=== PATIENT | female | born 1950 | race Caucasian/White ===

== ENCOUNTER 2018-03-04 05:45 | Observation (INO) | payer MEDICARE, OTHER ==
--- NOTE | 2018-02-18 16:22 | NUR ---
PATIENT HERE FOR PREAMISSION APPOINTMENT TODAY. PATIENT IS SCHEDULED FOR A RIGHT TOTAL KNEE ARTHROPLASTY ON 03/04/18. SHE HAS ALREADY ATTENDED A PHYSICAL THERAPY APPOINTMENT AT THE [facility]. SHE WOULD LIKE PHYSICAL THERAPY SET UP AT THE [facility] AFTER PROCEDURE. THE PATIENT REPORTS SHE WILL BE STAYING WITH HER DAUGHTER LUKE WHO HAS 3 STEPS INTO THE HOME WITH A HAND RAIL. THERE IS A TUB/SHOWER COMBO WITH A HANDHELD SHOWER HEAD. SHE IS GOING TO GO TO [facility] TO OBTAIN WALKER AND SHOWER CHAIR. SHE REPORTS HAVING HIP SURGERY A YEAR AGO AND GETTING SUPPLIES FROM THEM AT THAT TIME. THIS INFORMATION WILL BE SENT TO DR REIS OFFICE AND [place] PLANNING FOR FURTHER FOLLOW UP.
[~2018-03-04] VITALS: Ht 177.8 cm; Wt 99.8 kg
--- OUTSIDE RECORDS SUMMARY | ~2018-03-04 | XMS | Clinical Summary ---
Demographics + + + | Address | [address] | | | [place] [address] | + + + | Home Phone | | + + + | Preferred Language | Unknown | + + + | Marital Status | | + + + | Adventist Affiliation | 1025 | + + + | Race | Unknown | + + + | Ethnic Group | Unknown | + + + Author + + + | Author | [facility] | + + + | Organization | [facility] | + + + | Address | Unknown | + + + | Phone | Unavailable | + + + Support + + +---------+ + | Name | Relationship | Address | Phone | + + +---------+ + | Nancy Marrufo | ECON | Unknown | | + + +---------+ + | Detailed,Message | ECON | Unknown | | + + +---------+ + Care Team Providers + +------+ + | Care Audit Clerks Supervisor Name | Role | Phone | + +------+ + | Roger Ramírez DO | PP | | + +------+ + Allergies No Known Allergies Current Medications + + +-------+---------+------+------+-------+ | Prescription | Sig. | Disp. | Refills | Star | End | Statu | | | | | | t | Date | s | | | | | | Date | | | + + +-------+---------+------+------+-------+ | calcium carbonate | Take 1 tablet by | | | | | Activ | | (OS-KIRBY) 1250 MG | mouth daily. | | | | | e | | chewable tablet | | | | | | | + + +-------+---------+------+------+-------+ | Multiple Vitamin | Take 1 tablet by | | | | | Activ | | (MULTIVITAMIN) | mouth daily. | | | | | e | | tablet | | | | | | | + + +-------+---------+------+------+-------+ | FLAXSEED, LINSEED, | Take by mouth | | | | | Activ | | PO | daily. | | | | | e | + + +-------+---------+------+------+-------+ | b complex vitamins | Take 1 tablet by | | | | | Activ | | tablet | mouth daily. | | | | | e | + + +-------+---------+------+------+-------+ | UNABLE TO FIND | 1 tablet daily. | | | | | Activ | | | Tumeric | | | | | e | + + +-------+---------+------+------+-------+ | | Take 1 tablet by | | | | | Activ | | lisinopril-hydrochlo | mouth daily. | | | | | e | | rothiazide | | | | | | | | (PRINZIDE,ZESTORETIC | | | | | | | | ) 20-25 MG per | | | | | | | | tablet | | | | | | | + + +-------+---------+------+------+-------+ Active Problems + + + | Problem | Noted Date | + + + | Chest discomfort | 2016 | + + + + + | Last Assessment & Plan: 66 yr old female with h/o HTN, | | obesity, come for cardiology evaluation for chest pain. She | | reports having chest discomfort for many years more like skipped | | beats but lately she noticed having left sided and retrosternal | | chest pain which is different to what she had in years and is | | occuring more often- she was told this could be acid reflex and | | was given medicine for it which may have improved symptoms to | | come extent. She still have discomfort on and off non exertional, | | non radiating mild aching. Reports good exercise capacity. | | Remote smoking history stopped in 1972, drinks alcohol regularly | | 2-3 glasses of wine a night. No fhx of CAD. Will r/o CADReese do | | Stress MPi to evaluate for CAD03/21/2016- Echo- normal LV systolic | | functionEKG- 02/2016- NSR LAFB, anterior infarctDiscussed about | | CAD, risk factors, management options, diet, exercise, weight | | lossStrongly advised to stop alcoholAdvised to start ASA 81mg OTC | | QHSWill do lipid profileFollow up after tests. | + + + + + | right | 04/09/2013 | + + + | Breast mass | 03/27/2013 | + + + + + | Overview: Right | + + Social History + +-------+ +--------+ + | Tobacco Use | Types | Packs/Day | Years | Date | | | | | Used | | + +-------+ +--------+ + | Former Smoker | | | 3 | Quit: 11/26/1972 | + +-------+ +--------+ + + +---+---+---+ | Smokeless Tobacco: | | | | | Never Used | | | | + +---+---+---+ + + +---------+ + | Alcohol Use | Drinks/We | oz/Week | Comments | | | ek | | | + + +---------+ + | Yes | 2 | 2.4 | | | | Glasses | | | | | of wine | | | | | 2 Cans of | | | | | beer | | | + + +---------+ + + + + | Sex Assigned at | Date Recorded | | | | + + + | Not on file | | + + + Last Filed Vital Signs + + + + | Vital Sign | Reading | Time Taken | + + + + | Blood Pressure | 132/88 | 2016 12:37 PM PDT | + + + + | Pulse | 75 | 2016 12:37 PM PDT | + + + + | Temperature | 36.8 C (98.2 F) | 04/14/2013 12:10 PM PDT | + + + + | Respiratory Rate | 18 | 2016 12:37 PM PDT | + + + + | Oxygen Saturation | 98% | 2016 12:37 PM PDT | + + + + | Inhaled Oxygen | - | - | | Concentration | | | + + + + | Weight | 103 kg (227 lb) | 2016 12:37 PM PDT | + + + + | Height | 177.8 cm (5' 10") | 2016 12:37 PM PDT | + + + + | Body Mass Index | 32.57 | 2016 12:37 PM PDT | + + + + Plan of Treatment + + + + + | Health Maintenance | Due Date | Last Done | Comments | + + + + + | Vaccine: | | | | | Dtap/Tdap/Td (1 - | 9 | | | | Tdap) | | | | + + + + + | Colon Cancer | | | | | Screening | 0 | | | | (Colonoscopy) | | | | + + + + + | Vaccine: Zoster (#1) | | | | | | 0 | | | + + + + + | Breast Cancer | | 03/17/2013, 03/17/2013 | | | Screening | 5 | | | | (Mammogram) | | | | + + + + + | DEXA SCAN SCREENING | | | | | | 5 | | | + + + + + | Vaccine: | | | | | Pneumococcal 65+ | 5 | | | | High/Highest Risk (1 | | | | | of 2 - PCV13) | | | | + + + + + | Vaccine: Influenza | | | | | (Season Ended) | 8 | | | + + + + + Results Not on filefrom Last 3 Months Insurance + +--------+ +------+-------+ + | Payer | Benefi | Subscriber | Type | Phone | Address | | | t Plan | ID | | | | | | / | | | | | | | Group | | | | | + +--------+ +------+-------+ + | MEDICARE | MEDICA | xxxxxxxxxx | | | [address] | | | RE | | | | [place], [place] [address] | | | IP-OP | | | | | + +--------+ +------+-------+ + | MEDICAID | MEDICA | xxxxxxxx | | | [address] | | | ID | | | | [place] | | | [place] | | | | [address] | + +--------+ +------+-------+ + + +--------+ +--------+ + + | Guarantor Name | Accoun | Relation to | Date | Phone | Billing Address | | | t Type | Patient | of | | | | | | | | | | + +--------+ +--------+ + + | [address] | Person | Self | [birth year] | Home: | [address] | | | al/Fam | | [phone] | [phone] [place] | | | manuel | | | [phone] | [phone] | + +--------+ +--------+ + +
[~2018-03-04 05:45] MED LIST: CALCIUM600 MG PO; HYDROCODON-ACE1 EA11 PO; MAGNESIUM250 MG PO; MIRALAX17 GM PO; OXYCODONE HCL5 MG PO; TART CHERRY CA1 EACH PO; TUMERIC PO; XARELTO10 MG PO; ZESTORETIC 20-251 EA PO
--- NOTE | 2018-03-04 08:31 | NUR ---
03/04/18 0831 Neha Cardoso 0819 PT ARRIVED IN PACU WIDE AWAKE WITH NO C/O'S. CRYO CUFF PLACED ON R KNEE.
--- NOTE | 2018-03-04 08:51 | OR ---
[facility] [address] [place], [place] [address] Signed DATE OF OPERATION: 03/04/2018 SURGEON: Liana Dunn MD PREOPERATIVE DIAGNOSIS: Degenerative joint disease right knee. POSTOPERATIVE DIAGNOSIS: Degenerative joint disease right knee. PROCEDURE PERFORMED: Right total knee arthroplasty with computer navigation. MEDIA INTERN: PEPPER Castillo. Digna was present in critical positioning, retraction, and wound closure. ANESTHESIA: Spinal. BLOOD LOSS: Minimal. TOURNIQUET TIME: 53 minutes. IMPLANTS: Karl Triathlon size 5, 11 mm insert, 35 mm patella. HISTORY: Marivel is a 67-year-old female with progressive worsening of her arthritis and despite conservative treatment, she continued to have life-limiting pain. Risks, benefits, and alternatives were discussed and she elected to proceed. DESCRIPTION OF PROCEDURE: Once consent was obtained, she was taken to the operating room. After adequate anesthesia, placed on operating table. All downside pressure points are well padded. The right leg was placed on a hip bump and placed in well-padded proximal thigh tourniquet. The leg was then prepped and draped in standard sterile fashion. Standard anterior-posterior curved incision was taken through skin and subcutaneous tissue. Electronically Signed By: LIANA DUNN MD 03/04/18 0851 PATIENT NAME: MARIVEL STREET OPERATIVE REPORT DATE OF : 50 REPORT #: [id number] PHYSICIAN: LIANA DUNN MD PCP: SERAFIN CHEN DO REPORT IS CONFIDENTIAL AND NOT TO BE RELEASED WITHOUT AUTHORIZATION [facility] [address] [place], [place] [address] Signed Median parapatellar arthrotomy was performed. The infrapatellar fat pad was excised and the MCL was elevated to sleeve around the posterior medial corner. The anterior horns of menisci were transected. The ACL was transected. PCL was found to be intact and the knee was flexed. Navigation guide was pinned to the distal femur and the femur was registered with the computer. The cutting block was pinned in neutral alignment and the distal femoral cut was made. The distal femur was sized to a 5 and the 5 cutting block was pinned in line with the epicondylar axis. The anterior, posterior, and chamfer cuts were made. Any remaining osteophytes removed. Attention was then turned to the proximal tibia. The menisci were cleared to allow visualization. The navigation guide was pinned to the tibia and the tibia was registered with the computer. A cutting block was then pinned in neutral alignment and set to take 2 mm off the most involved medial side. The cut was made with care taken to protect the patellar tendon and MCL. The bone was excised and the posterior osteophytes were removed off the femur. The flexion and extension gaps were sized and found to be symmetric at 11 mm. The trials were then positioned. Knee was taken through range of motion and found to be stable. The patella was cut, sized, and drilled for 35 patella. The proximal tibia was finished using the keel punch and the drill holes on the femur were made. The trials were removed. The bone surfaces were pulse lavaged and packed with dry Ray-Maximiliano. Cement was mixed and reached proper consistency, displaced all implants on bone surfaces. The tibia was impacted into position first followed by the femur and all excess cement was removed. The polyethylene was snapped into position and the knee was extended and nicely loaded. The patella was clamped and again any remaining cement was removed. The cement was allowed to harden and the knee was again flexed and the remaining cement was removed using osteotomes. The periarticular soft tissues were injected with 100 mL ropivacaine and Toradol mixture. The knee was pulse lavaged at intervals throughout the procedure. A total of 3 L antibiotic irrigation was used. The arthrotomy was then closed using #2 Stratafix subcutaneous tissue with 0 Stratafix, and skin with maciej. Wound was dressed with Mepilex Ag dressing, ABD, and Jamie wrap. She tolerated the procedure well. All sponge, needle, and instrument counts were correct. Liana Dunn MD BA/MODL /[id number] Electronically Signed By: LIANA DUNN MD 03/04/18 0851 PATIENT NAME: MARIVEL STREET OPERATIVE REPORT DATE OF : 50 REPORT #: [id number] PHYSICIAN: LIANA DUNN MD PCP: SERAFIN CHEN DO REPORT IS CONFIDENTIAL AND NOT TO BE RELEASED WITHOUT AUTHORIZATION [address] [address] Signed Copies: ~ Electronically Signed By: LIANA DUNN MD 03/04/18 0851 PATIENT NAME: MARIVEL STREET OPERATIVE REPORT DATE OF : 50 REPORT #: [id number] PHYSICIAN: LIANA DUNN MD PCP: SERAFIN CHEN DO REPORT IS CONFIDENTIAL AND NOT TO BE RELEASED WITHOUT AUTHORIZATION
--- NOTE | 2018-03-04 09:00 | NUR ---
PATIENT GOT HERE AT 0855. DRESSING TO RIGHT KNEE CDI. CRYO CUFF IN PLACE. PATIENT A+0. PATIENT IS HAVING NO PAIN. HR IN THE 48-60'S. INFORMED.
--- NOTE | 2018-03-04 10:17 | NUR ---
PATIENT RESTING IN BED, EYES CLOSED. FAMILY AND RN IN ROOM. CALL LIGHT IN REACH. NO OTHER NEEDS AT THIS TIME.
--- NOTE | 2018-03-04 12:00 | NUR ---
PATIENT DOING WELL, ADVANCED TO CARDIAC DIET, DAUGHTER AT BEDSIDE, AND PATIENT IS STILL PAIN FREE. MOVING LOWER EXTREMITIES.
--- NOTE | 2018-03-04 13:10 | NUR ---
BLADDER SCAN OF 686MLS AND PATIENT IS INCONTINENT IN THE BED. GETTING READY TO GET UP TO THE BEDSIDE COMMODE WITH PT.
--- NOTE | 2018-03-04 13:15 | NUR ---
INCONTINENT IN THE BED AND ON FLOOR GETTING HER UP TO THE BEDSIDE COMMODE WITH PT. VOIDED 750 IN BEDSIDE COMMODE. 1 PERSON ASSIST TO BEDSIDE COMMODE.
--- NOTE | 2018-03-04 13:56 | NUR ---
PATIENT IS SITTING UP IN BED. RN IN ROOM ASSISTING PATIENT. PATIENTS FAMILY IN ROOM. CALL LIGHT WITHIN REACH. ICE IN CRYO. NO OTHER NEEDS AT THIS TIME.
--- NOTE | 2018-03-04 14:07 | NUR ---
STAFF HAVE BEEN VERY BUSY WITH PT SINCE SHE HAS ARRIVED ON M\S. VISITED WITH PT'S DAUGHTER LUKE, WHO SEEMS ANXIOUS TO CARE FOR HER MOTHER. SHE MENTIONED THAT SHE IS PLANNING ON PT COMING TO HER HOME FOLLOWING DC. SEEMS PLEASANT AND CONFIDENT IN CARE PT IS RECEIVING. WILL CONTINUE TO FOLLOW NEEDED
--- NOTE | 2018-03-04 15:01 | NUR ---
PT ALERT, ORIENTED AND SUPPORTED BY HER DAUGHTER ESTEFANIA. PT SEEMED INTRIQUED BY MY POSITION, AND ASKED QUESTIONS REGARDING WHAT MY JOB ENTALES. PT IS OF THE LATTER DAY [place], AND SEEMED SURPRISED I WOULD CARE FOR HER. EXTENDED A BLESSING, WILL FOLLOW NEEDED
--- NOTE | 2018-03-04 16:00 | NUR ---
PATIENT ATE A GOOD LUNCH, HAS HAD NO PAIN, NO NAUSEA, NO EPISODES OF DESATING THIS AFTERNOON AND NOT ON O2.
--- NOTE | 2018-03-04 17:24 | NUR ---
FRONT END JAVA DEVELOPER ASSISTED PATIENT FROM BEDSIDE COMMODE TO BED. 1 PERSON SBA WITH FWW. PATIENT IS NOW SITTING UP IN BED EATING DINNER. PATIENTS FAMILY IN ROOM. FRESH ICE WATER. CALL LIGHT WITHIN REACH. NO OTHER NEEDS AT THIS TIME.
--- NOTE | 2018-03-04 18:31 | NUR ---
PATIENT RESTING IN BED VISITING WITH FRIEND. CALL LIGHT WITHIN REACH. ICE IN CRYO. NO OTHER NEEDS AT THIS TIME.
--- NOTE | 2018-03-04 19:25 | NUR ---
IN ROOM FOR REPORT, PT IS AWAKE IN BED AND DENIES PAIN AT THIS TIME. PT DENIES NEEDS AT THIS TIME, CALL LIGHT IS WITHIN REACH.
--- NOTE | 2018-03-04 21:05 | NUR ---
PT IS AWAKE IN BED, HELPED HER TO THE RESTROOM AND BACK TO BED. AES, SCDS, CRYOCUFF, HEEL PROTECTORS, AND CONT PULSE OX ARE IN PLACE. PT DENIES PAIN AT THIS TIME AND STATES SHE HAS FEELING IN HER LEGS WITH LITTLE NUMBNESS. SHE IS A 1PA WITH WALKER. HER DRESSING IS CDI. SHE IS TOLERATING A REGULAR DIET AND IV WAS SL EARLIER IN DAY. PT IS VOIDING QS. SHE DENIES FURTHER NEEDS AT THIS TIME. CALL LIGHT IS WITHIN REACH.
--- NOTE | 2018-03-04 22:35 | NUR ---
WOKE PT TO GIVE ABX, SHE DENIES PAIN OR FURTHER NEEDS AT THIS TIME. CALL LIGHT IS WITHIN REACH.
--- NOTE | 2018-03-05 02:12 | NUR ---
HELPED PT TO RESTROOM AND BACK TO BED, SHE HAS FRESH ICEWATER AT BEDSIDE AND ICE IN HER CRYOCUFF. PT DENIES PAIN AND FURTHER NEEDS AT THIS TIME. CALL LIGHT IS WITHIN REACH.
--- NOTE | 2018-03-05 06:34 | NUR ---
HELPED PT TO RESTROOM, HER DAUGHTER IS HERE VISITING. SHE DENIES NEEDS AT THIS TIME. FRESH WATER AT BEDSIDE AND ICE IN CRYO.
--- NOTE | 2018-03-05 07:30 | NUR ---
PATIENT A+O AND HAD A GOOD NIGHT. PATIENT IS STILL PAIN FREE. HERE ASSESSING PATIENT.
--- NOTE | 2018-03-05 07:45 | NUR ---
PATIENT SITTING STRAIGHT UP IN BED EATING BREAKFAST. TALKED TO PATIENT ABOUT GETTING UP TO CHAIR AND BATHING THIS AM. PATIENT RATES PAIN 0 OUT OF 10. CALL BUTTON IN REACH. NO OTHER NEEDS AT THIS TIME.
--- NOTE | 2018-03-05 09:30 | NUR ---
PATIENT UP IN THE BEDSIDE RECLINER. FEET ELEVATED. TEDS, SCD'S, AND CRYO CUFF STILL IN PLACE. PATIENT SAYS HER KNEE IS STARTING TO ACHE, BUT ONLY WANTS TO TAKE THE SCHDULED TORADOL IV, AND NO OTHER PAIN MEDICATION AT THIS TIME. PATIENT HAS VISITORS.
--- NOTE | 2018-03-05 10:03 | NUR ---
PATIENT SITTING UP IN CHAIR WITH CRYO ON. FAMILY IN ROOM TO VISIT. PATIENT HAS SOME DRAINAGE ON HER DRESSING. RN NOTIFIED. FRESH ICE WATER GIVEN. ICE IN CRYO. PATIENT WASHED HANDS AND FACE. CALL BUTTON IN REACH. LINENS CHANGED. NO OTHER NEEDS AT THIS TIME.
--- NOTE | 2018-03-05 11:40 | NUR ---
PATIENT SAYS HER KNEE IS STARTING TO FEEL WARM AND ACHES AT 1/10. 5MG PO OXYCODONE GIVEN. WILL REASSESS IN 30 MINUTES.
--- NOTE | 2018-03-05 12:12 | NUR ---
PATIENT SITTING UP IN BED. PATIENT VISITING WITH FRIENDS AND FAMILY MEMBERS. NO OTHER NEEDS AT THIS TIME.
--- NOTE | 2018-03-05 12:17 | NUR ---
PATIENT DOWN TO 0/10 FROM /10 AND DOES NOT WANT ANYMORE PAIN MEDS AT THIS TIME.
--- NOTE | 2018-03-05 12:30 | NUR ---
PATIENT SITTING UP IN BED. FAMILY AT BEDSIDE VISITING. PATIENT HAS A LOT OF VISITORS. NO C/O OF ANYPAIN. PATIENT A+O.
--- NOTE | 2018-03-05 13:09 | NUR ---
PT SITTING IN CHAIR, READING. SHE IS ALERT AND ORIENTED. P.T. CAME IN DURING VISIT TO CHECK ON PT, AND SAID SHE IS DOING WELL. PT MENTIONED SHE IS NAPPING ON AND OFF, NOT MUCH SLEEP LAST NIGHT. EXTENDED A BLESSING, WILL FOLLOW NEEDED
--- NOTE | 2018-03-05 13:11 | NUR ---
PATIENT SITTING UP IN BED. FAMILY IN ROOM TO VISIT. NO NEEDS AT THIS TIME. CALL BUTTON IN REACH.
--- NOTE | 2018-03-05 13:38 | NUR ---
PATIENT IN BED WITH FAMILY IN ROOM. FRESH ICE WATER GIVEN. PATIENT RATES PAIN A 2 OUT OF 10. PATIENT STATES THAT SHE WASHED UP IN BATHROOM EARLIER TODAY AND BRUSED HER TEETH. NO OTHER NEEDS AT THIS TIME. CALL BUTTON IN REACH.
--- NOTE | 2018-03-05 14:55 | NUR ---
PATIENT HAD A LARGE K+ PIGGYBACK THIS MORNING THAT RAN OVER 4 HORS. SITE IS NOW INFLAMED AND TENDER. V.O. FROM DR. MAGDALENO TO MAKSIM IV AND NOT TO START A NEW ONE AT THIS TIME.
--- NOTE | 2018-03-05 15:39 | NUR ---
PATIENT HR HAS DROPPED DOWN TO 45 AND IS NOT SYMPOTOMATIC. INFORMED. NO NEW ORDERS GIVEN.
--- NOTE | 2018-03-05 16:00 | NUR ---
PATIENT VISITING WITH A FRIEND. PAIN AT 3/10 AT THIS TIME.
[2018-03-05] MEDS ORDERED: ALEVE220 M1 PO (16:17)
--- NOTE | 2018-03-05 16:25 | NUR ---
MED REC COMPLETE WITH [facility] REFILL HISTORY AND PATIENT INTERVIEW.
--- NOTE | 2018-03-05 17:00 | NUR ---
PATIENT HAS HAD A GOOD DAY. IV SL AND FLUSHES WELL. LUNGS CLEAR. BOWEL TONES ACTIVE. PATIENT EATING WELL. SMALL AMOUNT OF DRAINAGE ON BOTTOM OF ARSLAN WRAP AFTER PT. WALKED IN SPICER AND CLIMBED STAIRS TODAY WITH PT. PATIENT ALSO UP TO THE BATHROOM MULTIPLE TIMES WITH 1PSBA AND WALKER. PAIN REACHED A MAXIMUM OF 5/10 TODAY. 5MG OXYCODONE GIVEN AFTER MORNING PT SESSION AND 10MG GIVEN IN THE AFTERNOON. PAIN CURRENTLY 0.5/10 PER PATIENT. CRYO CUFF, SCDS, AND TEDS IN PLACE.
--- NOTE | 2018-03-05 17:54 | NUR ---
PATIENT SITTING STRAIGHT UP IN BED EATING DINNER. FRESH ICE WATER GIVEN. ICE IN CRYO. PATIENT RATES HER PAIN A 1 OUT OF 10. NO OTHER NEEDS AT THIS TIME.
--- NOTE | 2018-03-05 19:08 | NUR ---
IN ROOM FOR REPORT, PT IS AWAKE IN BED. HELPED HER TO THE RESTROOM, SHE WILL CALL WHEN SHE IS DONE.
--- NOTE | 2018-03-05 23:05 | NUR ---
HELPED PT TO RESTROOM AND BACK TO BED, SHE STATES SHE HAS NO PAIN AT THIS TIME. CRYOCUFF, SCDS, AES, AND HEEL PROTECTORS ARE IN PLACE.THERE IS A SMALL AMOUNT OF DRIED BLOOD ON ACEWRAP, OTHERWISE DRESSING IS CDI. PT DENIES FURTHER NEEDS AT THIS TIME. CALL LIGTH IS WITHIN REACH.
--- NOTE | 2018-03-06 01:12 | NUR ---
PT IS RESTING WITH EYES CLOSED, RESPIRATION ARE EVEN AND NONLABORED. CALL LIGHT IS WITHIN REACH.
--- NOTE | 2018-03-06 02:33 | NUR ---
PT STATES HER PAIN IS A 4/10 AND 2 OXYDOCONE WORKED WELL FOR HER EARLIER TODAY. ADMINISTERED 2 OXYCODONE AND PT DENIES FURTHER NEEDS AT THIS TIME. CALL LIGHT IS WITHIN REACH.
--- NOTE | 2018-03-06 06:27 | NUR ---
PT IS AWAKE IN BED, REPORTS PAIN AT 4/10. TYLENOL AND 2 OXYCODONE WERE GIVEN. PT DENIES FURTHER NEEDS AT THIS TIME. FRESH WATER AT BEDSIDE.
--- NOTE | 2018-03-06 08:00 | NUR ---
PATIENT A+O, AWAKE AND VISITING WITH FAMILY. LOOKING FORWARD TO GOING HOME, BUT STILL HAS NOT HAD A BOWEL MOVEMENT. IV FLUSHES WELL. NO NEW DRAINAGE ON DRESSING, JUST A SMALL DRIED AMOUNT FROM YESTERDAY. PATIENT'S PAIN IS 2/10 IN THE RT KNEE.LUNGS CLEAR AND BOWEL TONES ACTIVE. 1PSBA WITH WALKER TO THE BATHROOM WHEN NEEDED.
--- NOTE | 2018-03-06 08:04 | NUR ---
PATIENT SITTING UP IN BED EATING BREAKFAST. PATIENTS SON AND DAUGHTER IN ROOM. CALL LIGHT WITHIN REACH. NO OTHER NEEDS AT THIS TIME.
[2018-03-06] MEDS ORDERED: XARELTO10 MG PO (09:46)
[2018-03-06] MEDS ORDERED: OXYCODONE HCL5 MG PO (09:46)
[2018-03-06] MEDS ORDERED: MAPAP500 M1 PO (09:46)
[2018-03-06] MEDS ORDERED: MIRALAX17 GM PO (09:47)
[2018-03-06] MEDS ORDERED: NEURONTIN300 MG PO (09:47)
--- NOTE | 2018-03-06 11:00 | NUR ---
PATIENT STARTED A BATH AT 0930 AND AT 1030 RT KNEE DRESSING REPLACED. MEPILEX,ABD,AND ARSLAN WRAP SECURED WITH SILK TAPE. LACEY HOSE KNEE HIGH THEN PLACED. PATIENT'S PAIN AT 3/10 AT THIS TIME IT HAS BEEN OVER 4 HOURS SINCE HER LAST PAIN MEDICATION. 5MG OXYCODONE X2 PO GIVEN. AWITING PATIENT'S DAUGHTER TO ARRIVE TO GO OVER DISCHARGE INSTRUCTIONS AND TO HAVE PHARMACY GIVE DC INSTRUCTIONS FOR MEDS.
--- NOTE | 2018-03-06 13:05 | NUR ---
PT WAITING FOR DC-CONNECTED WIT DAUGHTER LUKE. SHE IS EXCITED TO HAVE PT COME HOME WITH HER FOR THE FIRST FEW DAYS.
--- NOTE | 2018-03-07 17:49 | NUR ---
CHART NOTES INCLUDING FACESHEET, ORDER, H AND P, OP NOTES, PROG NOTES, OT AND PT EVAL AND NOTES FAXED TO [facility].
--- NOTE | 2018-03-07 17:55 | NUR ---
RECIEVED FAX CONFIRMATION FROM [facility]
== END 2018-03-06 12:15 | disposition home or self-care (01) ==
LOC: DS 05:45 → MS 09:00 → DS 09:00 → MS 03-06 12:15
PROVIDERS: ADMIT Specialist
PROC: 8E0YXBZ Computer Assisted Procedure of Lower Extremity (ICD-10-PCS; 2018-03-04)
PROC: 0SRC0J9 Replacement of Right Knee Joint with Synthetic Substitute, Cemented, Open Approach (ICD-10-PCS; principal; 2018-03-04 06:45)
DX: M17.11 Unilateral primary osteoarthritis, right knee (principal); I10 Essential (primary) hypertension; E66.9 Obesity, unspecified; Z79.899 Other long term (current) drug therapy; Z79.1 Long term (current) use of non-steroidal anti-inflammatories (NSAID); Z68.31 Body mass index [BMI] 31.0-31.9, adult
CPT/HCPCS: 01402; 36415; 64447; 76942; 80048; 85025; 94762; 96372; 96374; 96375; 96376; 97110; 97116; 97161; 97165; C1713; C1776; G0378; G8978; G8979; J0690; J1100; J1885; J2250; J2274; J2300; J2704; J2795; J3010; J7120

== ENCOUNTER 2019-11-11 15:06 | Emergency (ER) | payer MEDICARE, OTHER ==
[~2019-11-11] VITALS: Ht 177.8 cm; Wt 99.8 kg
--- OUTSIDE RECORDS SUMMARY | ~2019-11-11 | XMS | Encounter Summary ---
Demographics + + + | Address | [address] | | | [place] [address] | + + + | Home Phone | | + + + | Preferred Language | Unknown | + + + | Marital Status | | + + + | Religion Affiliation | 1025 | + + + | Race | Unknown | + + + | Ethnic Group | Unknown | + + + Author + + + | Author | [facility] | | | and [place] | + + + | Organization | [facility] | | | and [place] | + + + | Address | Unknown | + + + | Phone | Unavailable | + + + Support + + +---------+ + | Name | Relationship | Address | Phone | + + +---------+ + | Nancy Marrufo | ECON | Unknown | | + + +---------+ + Care Team Providers + +------+ + | Care Shelf Drier Operator Name | Role | Phone | + +------+ + PCP | Unavailable | + +------+ + Reason for Visit + + + | Reason | Comments | + + + | Medication Refill | | + + + Encounter Details +--------+--------+ + + + | Date | Type | Department | Care Team | Description | +--------+--------+ + + + | 06/02/ | Refill | [facility] | Kiera Araya, CC | Medication Refill | | 2018 | | [facility] | [facility] | | | | | [facility] [address] [place], | | | | | | [place] [address] | | | | | | [phone] | | | +--------+--------+ + + + Social History + +-------+ +--------+------+ | Tobacco Use | Types | Packs/Day | Years | Date | | | | | Used | | + +-------+ +--------+------+ | Former Smoker | | | | | + +-------+ +--------+------+ + + + | Sex Assigned at | Date Recorded | | | | + + + | Not on file | | + + + + + + + | Job Start Date | Occupation | Industry | + + + + | Not on file | Not on file | Not on file | + + + + + + + + | Travel History | Travel Start | Travel End | + + + + + + | No recent travel history available. | + + documented as of this encounter Plan of Treatment Not on filedocumented as of this encounter Visit Diagnoses Not on filedocumented in this encounter"
--- OUTSIDE RECORDS SUMMARY | ~2019-11-11 | XMS | Encounter Summary ---
Demographics + + + | Address | [address] | | | [place] [address] | + + + | Home Phone | | + + + | Preferred Language | Unknown | + + + | Marital Status | | + + + | Yarsanism Affiliation | 1025 | + + + | Race | Unknown | + + + | Ethnic Group | Unknown | + + + Author + + + | Author | [facility] | | | and [place] | + + + | Organization | [facility] | | | and [...] Team Providers + +------+ + | Care Money Counter Name | Role | Phone | + +------+ + PCP | Unavailable | + +------+ + Encounter Details +--------+ + + + + | Date | Type | Department | Care Team | Description | +--------+ + + + + | 12/10/ | Hospital | [facility] | Conversion | Breast nodule | | 2014 | Encounter | CONVERSION [address] | Transaction, | | | | | [address] | Provider Unknown | | | | | [place] | | | | | | [address] | (Fax) | | | | | [phone] | | | +--------+ + + + + Social History + +-------+ +--------+------+ | Tobacco Use | Types | Packs/Day | Years | Date | | | | | Used | | + +-------+ +--------+------+ | Never Assessed | | | | | + +-------+ [...] Not on filedocumented as of this encounter Procedures + +--------+ + + + | Procedure Name | Priori | Date/Time | Associated Diagnosis | Comments | | | ty | | | | + +--------+ + + + | CORINNE DIGITAL | Routin | 03/17/2013 | | Results for this | | DIAGNOSTIC BILATERAL | e | 4:04 AM | | procedure are in the | | | | PDT | | results section. | + +--------+ + + + documented in this encounter Results CORINNE Digital Diagnostic Bilateral (03/17/2013 4:04 AM PDT) + + | Specimen | + + | | + + + + + | Narrative | Performed At | + + + | This is a non-reportable procedure without a radiologist report and | | | is used for image storage only | | + + + + + | Procedure Note | + + | Arturo Whaley Michael - 07/11/2019 3:42 AM PDT This is a non-reportable procedure | | without a radiologist report and isused for image storage only | + + documented in this encounter Visit Diagnoses + + | Diagnosis | + + | Breast nodule Other (abnormal) findings on radiological examination of breast | + + documented in this encounter"
--- OUTSIDE RECORDS SUMMARY | ~2019-11-11 | XMS | Encounter Summary ---
Demographics + + + | Address | [address] | | | [place] [address] | + + + | Home Phone | | + + + | Preferred Language | Unknown | + + + | Marital Status | | + + + | Bahai Affiliation | 1025 | + + + | Race | Unknown | + + + | Ethnic Group | Unknown | + + + Author + + + | Author | [facility] | | | and [place] | + + + | Organization | [facility] | | [...] Team Providers + +------+ + | Care Firmware Developer Name | Role | Phone | + +------+ + | Lucius Ramírez DO | PCP | | + +------+ + Encounter Details +--------+ + + + + | Date | Type | Department | Care Team | Description | +--------+ + + + + | 03/21/ | Orders Only | [facility] | Lucius Ramírez | | | 2015 | | [address] | E, DO [address] | | | | | [place] | [place] | | | | | [place] | [address] | | | | | [address] | [phone] | | | | | [phone] | | | +--------+ + + + [...] | + +--------+ + + + | ECHO INTERPRETATION | Routin | 03/21/2016 | | Results for this | | OF OUTSIDE FILMS | e | 11:45 AM | | procedure are in the | | | | PDT | | results section. | + +--------+ + + + documented in this encounter Results ECHO Interpretation of Outside Films (03/21/2016 11:45 AM PDT) + + | Specimen | + + | | + + + + + | Impressions | Performed At | + + + | 1. Overall left ventricular systolic function is normal with, an EF | | | between 65 - 70 %. | | + + + + + + | Narrative | Performed At | + + + | Patient Name: Letitia Jaffe Date of : 1950 | | | Performing Physician: MARISOL PEPPER MD | | | | | | INDICATIONS Murmur CONCLUSIONS 1. | | | Overall left ventricular systolic function is normal with, an EF | | | between 65 - 70 %. FINDINGS -------- Left Ventricle: Overall | | | left ventricular systolic function is normal with, an EF between 65 - | | | 70 %. Left Ventricle: The left ventricle cavity size is normal. Left | | | Ventricle: Left ventricular wall thickness is normal. Left | | | Ventricle: Sigmoid shaped septum with focal hypertrophy of the basal | | | septum. The remaining wall thickness is normal. Right Ventricle: The | | | right ventricle is normal in size. Left Atrium: The left atrial size | | | is normal. Right Atrium: The right atrial size is normal. Aortic | | | Valve: The aortic valve was not well visualized. Aortic Valve: There | | | is no evidence of aortic regurgitation. Aortic Valve: There is no | | | evidence of aortic stenosis. Mitral Valve: The mitral valve is | | | normal. Mitral Valve: No mitral regurgitation. Tricuspid Valve: The | | | tricuspid valve appears structurally normal. Tricuspid Valve: No | | | regurgitation noted Tricuspid Valve: There is no evidence of | | | pulmonary hypertension. Pulmonic Valve: The pulmonic valve is normal. | | | Pulmonic Valve: Trace pulmonic regurgitation. Pericardium: There | | | is no pericardial effusion. IVC/Hepatic Veins: The IVC is normal size | | | (1.5-2.5cm) and collapses >50% with sniff, consistent with central | | | venous pressures of 5-10mmHg. Aorta: The aortic root, ascending aorta | | | and aortic arch are normal. MEASUREMENTS | | | Trial Paralegal: NELY Authenticated by: MARISOL PEPPER MD Report | | | Date/Time: 03-22-2016 13:24:24 | | + + + + + | Procedure Note | + + | Judd, Rad Conversion - 07/18/2019 10:37 AM PDT Patient Name: Chepe Jaffe of | | : 1950 Performing Physician: MARISOL PEPPER | | INDICATIONS M | | urmur CONCLUSIONS 1. Overall left ventricular systolic function is normal | | with, an EF between 65 - 70 %. FINDINGS--------Left Ventricle: Overall left ventricular | | systolic function is normal with, an EF between 65 - 70 %.Left Ventricle: The left | | ventricle cavity size is normal.Left Ventricle: Left ventricular wall thickness is | | normal.Left Ventricle: Sigmoid shaped septum with focal hypertrophy of the basal septum. | | The remaining wall thickness is normal.Right Ventricle: The right ventricle is normal | | in size.Left Atrium: The left atrial size is normal.Right Atrium: The right atrial size | | is normal.Aortic Valve: The aortic valve was not well visualized.Aortic Valve: There is | | no evidence of aortic regurgitation.Aortic Valve: There is no evidence of aortic | | stenosis.Mitral Valve: The mitral valve is normal.Mitral Valve: No mitral | | regurgitation.Tricuspid Valve: The tricuspid valve appears structurally normal.Tricuspid | | Valve: No regurgitation notedTricuspid Valve: There is no evidence of pulmonary | | hypertension.Pulmonic Valve: The pulmonic valve is normal.Pulmonic Valve: Trace | | pulmonic regurgitation.Pericardium: There is no pericardial effusion.IVC/Hepatic Veins: | | The IVC is normal size (1.5-2.5cm) and collapses >50% with sniff, consistent with | | central venous pressures of 5-10mmHg.Aorta: The aortic root, ascending aorta and aortic | | arch are normal. MEASUREMENTS Trial Paralegal: JOELLENuthenticated by: MARISOL | | SHANTELLE Donaldson Date/Time: 03-22-2016 13:24:24 IMPRESSION: 1. Overall left | | ventricular systolic function is normal with, an EF between 65 - 70 %. | |Right Ventricle: The right ventricle is normal in size. | |Left Atrium: The left atrial size is normal. | |Right Atrium: The right atrial size is normal. | |Aortic Valve: The aortic valve was not well visualized. | |Aortic Valve: There is no evidence of aortic regurgitation. | |Aortic Valve: There is no evidence of aortic stenosis. | |Mitral Valve: The mitral valve is normal. | |Mitral Valve: No mitral regurgitation. | |Tricuspid Valve: The tricuspid valve appears structurally normal. | |Tricuspid Valve: No regurgitation noted | |Tricuspid Valve: There is no evidence of pulmonary hypertension. | |Pulmonic Valve: The pulmonic valve is normal. | |Pulmonic Valve: Trace pulmonic regurgitation. | |Pericardium: There is no pericardial effusion. | |IVC/Hepatic Veins: The IVC is normal size (1.5-2.5cm) and collapses >50% with sniff, consis tent with central venous pressures of 5-10mmHg. | |Aorta: The aortic root, ascending aorta and aortic arch are normal. | | | |MEASUREMENTS | | | | | |Trial Paralegal: | |Authenticated by: MARISOL PEPPER MD | |Report Date/Time: 03-22-2016 13:24:24 | | | |IMPRESSION: | |1. Overall left ventricular systolic function is normal with, an EF between 65 - 70 %. | + + documented in this encounter Visit Diagnoses Not on filedocumented in this encounter"
--- OUTSIDE RECORDS SUMMARY | ~2019-11-11 | XMS | Encounter Summary ---
Demographics + + + | Address | [address] | | | [place] [address] | + + + | Home Phone | | + + + | Preferred Language | Unknown | + + + | Marital Status | | + + + | Lutheran Affiliation | 1025 | + + + | Race | Unknown | + + + | Ethnic Group | Unknown | + + + Author + + + | Author | [facility] | | | and [place] | + + + | Organization | [facility] | | | [...] Team Providers + +------+ + | Care Hospital Tray Service Worker Name | Role | Phone | + +------+ + | Lucius Ramírez DO | PCP | | + +------+ + Encounter Details +--------+ + + + + | Date | Type | Department | Care Team | Description | +--------+ + + + + | 10/06/ | Abstract | [facility] | Lucius Ramírez | | | 2019 | | [facility] | E, DO [address] | | | | | [facility] [address] | [place] | | | | [address] [place], | [address] | | | | | [place] [address] | [phone] | | | | | [phone] | | | +--------+ + + + + Social History + +-------+ +--------+------+ | Tobacco Use | Types | Packs/Day | Years | Date | | | | | Used | | + +-------+ +--------+------+ | Former Smoker | | | | | + +-------+ +--------+------+ + +---+---+---+ | Smokeless Tobacco: | | | | | Never Used | | | | + +---+---+---+ + + + + + | Alcohol Use | Drinks/Week | oz/Week | Comments | + + + + + | Yes | 1-2 Standard | 1.0 - 2.0 | | | | drinks or equivalent | | | + + + + + + + + + | Alcohol Habits | Answer | Date Recorded | + + + + | How often do you have a drink containing | 2-4 times a month | 10/03/2019 | | alcohol? | | | + + + + | How many drinks containing alcohol do you | 1 or 2 | 10/03/2019 | | have on a typical day when you are | | | | drinking? | | | + + + + | How often do you have six or more drinks on | Not asked | | | one occasion? | | | + + + + + + + | Sex Assigned [...] + +--------+ + + + | CORINNE EXTERNAL IMAGE | Routin | 10/24/2018 | | Results for this | | | e | | | procedure are in the | | | | | | results section. | + +--------+ + + + documented in this encounter Results CORINNE External Image (10/24/2018) + + + + + + | Component | Value | Ref Range | Performed | Pathologist | | | | | At | Signature | + + + + + + | EXT | 2-Benign | | | | | MAMMOGRAPHY | finding(s)Comment: [facility] | | | | | | [facility] | | | | + + + + + + documented in this encounter Visit Diagnoses Not on filedocumented in this encounter"
--- OUTSIDE RECORDS SUMMARY | ~2019-11-11 | XMS | Encounter Summary ---
Demographics + + + | Address | [address] | | | [place] [address] | + + + | Home Phone | | + + + | Preferred Language | Unknown | + + + | Marital Status | | + + + | Synagogue Affiliation | 1025 | + + + | Race | Unknown | + + + | Ethnic Group | Unknown | + + + Author + + + | Author | [facility] | | | and [place] | + + + | Organization | [facility] | | [...] Team Providers + +------+ + | Care Nanotechnology Engineering Technologist Name | Role | Phone | + +------+ + PCP | Unavailable | + +------+ + Encounter Details +--------+ + + + + | Date | Type | Department | Care Team | Description | +--------+ + + + + | 12/10/ | Hospital | C GENERIC IP | Conversion | Pain | | 2015 | Encounter | CONVERSION [address] | Transaction, | | | | | [address] | Provider Unknown | | | | | [place], [place] | | | | | | [address] | (Fax) | | | | | [phone] | | | +--------+ + + + [...] | + +--------+ + + + | US BREAST LIMITED | Routin | 03/17/2013 | | Results for this | | RIGHT | e | 4:03 AM | | procedure are in the | | | | PDT | | results section. | + +--------+ + + + documented in this encounter Results US Breast Limited Right (03/17/2013 4:03 AM PDT) + + | Specimen | [...] + | Diagnosis | + + | Pain Generalized pain | + + documented in this encounter"
--- OUTSIDE RECORDS SUMMARY | ~2019-11-11 | XMS | Clinical Summary ---
Demographics + + + | Address | [address] | | | [place] [address] | + + + | Home Phone | | + + + | Preferred Language | Unknown | + + + | Marital Status | | + + + | Evangelical Affiliation | 1025 | + + + | Race | Unknown | + + + | Ethnic Group | Unknown | + + + Author + + + | Author | [facility] (Historical as of | | | 07-12-19) | + + + | Organization | [facility] (Historical as of | | | 07-12-19) | + + + | Address | Unknown | + + + | Phone | Unavailable | + + + Support + + +---------+ + | Name | Relationship | Address | Phone | + + +---------+ + | Nancy Marrufo | ECON | Unknown | | + + +---------+ + | Elder,Sekou | ECON | Unknown | | + + +---------+ + Care Team Providers + +------+ + | Care Assurance Sourcing Manager Name | Role | Phone | + [...] | | | | | | | ([employer] | | | | | | | [...] night. No fhx of CAD. Will r/o CADWill do | | Stress MPi to evaluate [...] + + + + | Vaccine: Zoster (1 | | | | | of 2) | 0 | | | + + [...] Vaccine: Influenza | | | | | (#1) | 9 | | | + + + + [...] +------+-------+ + | MEDICARE | MEDICA | [id number] | | | [address] | | | [place] | | | | [place] [address] | | | IP-OP | | | | | + +--------+ +------+-------+ + | MEDICAID | MEDICA | [id number] | | | [address] | | | [place] | | | | [place], [place] | | | [place] | | | | [address] | + +--------+ +------+-------+ + + +--------+ [...] | | al/Fam | | 1950 | [phone] | [place] | | | manuel | | | [phone] | [address] | + +--------+ +--------+ + +
--- OUTSIDE RECORDS SUMMARY | ~2019-11-11 | XMS | Encounter Summary ---
Demographics + + + | Address | [address] | | | [place] [address] | + + + | Home Phone | | + + + | Preferred Language | Unknown | + + + | Marital Status | | + + + | Shinto Affiliation | 1025 | + + + | Race | Unknown | + + + | Ethnic Group | Unknown | + + + Author + + + | Author | [facility] | | | and [place] | + + + | Organization | [facility] | | | and [...] Team Providers + +------+ + | Care Arc Trimmer Name | Role | Phone | + +------+ + | Lucius Ramírez DO | PCP | | + +------+ + Reason for Visit + + + | Reason | Comments | + + + | Medication Refill | | + + + Encounter Details +--------+--------+ + + + | Date | Type | Department | Care Team | Description | +--------+--------+ + + + | 07/09/ | Refill | [facility] | Kiera Araya, CC | Medication Refill | | 2018 | | [facility] | CLINICAL REHAB SPECIALIST | | | | | MEDICAL CL[facility] [address] | | | | | | [address] [facility] [facility] [place], | | | | | | [place] [address] | | | | | | [phone] | | | +--------+--------+ + + + [...]
--- OUTSIDE RECORDS SUMMARY | ~2019-11-11 | XMS | Encounter Summary ---
Demographics + + + | Address | [address] | | | [place] [address] | + + + | Home Phone | | + + + | Preferred Language | Unknown | + + + | Marital Status | | + + + | Lutheran Affiliation | 1025 | + + + | Race | Unknown | + + + | Ethnic Group | Unknown | + + + Author + + + | Author | [facility] | | | and [place] | + + + | Organization | [facility] | | | and [...] Team Providers + +------+ + | Care Interlibrary Loan Specialist Name | Role | Phone | + [...] Provider Unknown | | | | | [place], [place] | | | | | | [address] | (Fax) | | | | | [phone] | | | +--------+ + + + [...]
--- OUTSIDE RECORDS SUMMARY | ~2019-11-11 | XMS | Encounter Summary ---
Demographics + + + | Address | [address] | | | [place] [address] | + + + | Home Phone | | + + + | Preferred Language | Unknown | + + + | Marital Status | | + + + | Mandaeism Affiliation | 1025 | + + + | Race | Unknown | + + + | Ethnic Group | Unknown | + + + Author + + + | Author | [facility] | | | and [place] | + + + | Organization | [facility] | | | [...] Team Providers + +------+ + | Care Wood Heel Flap Inserter Name | Role | Phone | + +------+ + PCP | Unavailable | + +------+ + Encounter Details +--------+ + + + + | Date | Type | Department | Care Team | Description | +--------+ + + + + | 03/31/ | Hospital | [facility] | Travon Cordero | | | 2012 | Encounter | [facility] | MD [address] | | | | | CLINICAL DECISION | [address] | | | | | [address] | [place] [address] | | | | | [place], [place] | [phone] | | | | | [address] | | | | | | [phone] | | | +--------+ + + + [...] + + documented as of this encounter Progress Notes Conversion Transaction, Provider Unknown - 03/31/2013 2:50 PM PDTFormatting of this note m ight be different from the original. Progress Notes by Amanda Hutchinson RN at 03/31/131449 Author: Amanda Hutchinson RN Service: (none) Author Type: Registered Nurse Filed: 03/31/131451 Date of Service: 03/31/131449 Status: Signed Property Underwriter: Amanda Hutchinson RN (Registered Nurse) Patient tolerated clear liquid tray. No nausea/vomitting. Pain under control. Prescripti ons given by [facility] bedside service. Instructions given, patient stated understanding. Patient discharged home with dressing supplies. liver campos, Holly Henderson [facility] - 03/31/2013 2:12 PM PDTFormatting of this note might be different from t he original. Progress Notes by Holly Javed RPH at 03/31/131411 Author: Holly Javed RPH Service: (none) Author Type: Pharmacist Filed: 03/31/131411 Date of Service: 03/31/131411 Status: Signed Property Underwriter: Holly Javed RPH (Pharmacist) Clinical Pharmacy Note - Renal Dose Adjustment [address] 62 y.o. female Ht Readings from Last 1 Encounters: 03/31/13 1.753 m (5' 9") Wt Readings from Last 1 Encounters: 03/31/13 99.4 kg (219 lb 2.2 oz) CREATININE Date Value Range Status 03/25/2013 0.85 0.50 - 1.00 mg/dL Final Testing performed at [facility];[address] [place] [address];[place] [address] Creatinine clearance cannot be calculated - Pharmacy to renally adjust medications per Dr. Cordero Plan: No current Scr. Will follow up once available. Pharmacy will continue to follow and adjust as appropriate. Pharmacist: Holly Javed 03/31/2013 2:12 PM onversio n Transaction, Provider Unknown - 03/31/2013 1:34 PM PDTFormatting of this note might be di fferent from the original. Progress Notes by Amanda Hutchinson RN at 03/31/131333 Author: Amanda Hutchinson RN Service: (none) Author Type: Registered Nurse Filed: 03/31/131333 Date of Service: 03/31/131333 Status: Signed Property Underwriter: Amanda Hutchinson RN (Registered Nurse) Patient dressing on R breast is clean and dry. No swelling noted. docume nted in this encounter Plan of Treatment Not on filedocumented as of this encounter Procedures + +--------+ + + + | Procedure Name | Priori | Date/Time | Associated Diagnosis | Comments | | | ty | | | | + +--------+ + + + | TISSUE REQUEST FOR | Routin | 03/31/2013 | | Results for this | | PATHOLOGY (NON-ORD) | e | 12:00 AM | | procedure are in the | | | | PDT | | results section. | + +--------+ + + + documented in this encounter Results Tissue Request For Pathology (03/31/2013 12:00 AM PDT) + + | Specimen | + + | | + + + + + | Narrative | Performed At | + + + | CASE: [id number] PATIENT: [address] [facility] | EXTERNAL LAB | | Report PATHOLOGIC DIAGNOSIS: A. Breast, right, excision: | | | - Benign fibrofatty breast tissue. B. 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 - Histologic grade (Inessa mod. | | | Araiza/Perales - mBR). - Nuclear grade score: 3/3. | | | - Tubule formation score: 3/3. - Mitotic | | | rate (6 per 10 HPF) score: 2/3. - mBR Grade (G3): Score 8/9, | | | high grade. - Tumor size (pT1c): 17 mm. - Percentage | | | of total tumor: 100% - Type(s) of in situ component: No ductal | | | carcinoma in situ component is identified. - Percentage of | | | total tumor: 0% - Lymphovascular invasion: Not definitively | | | identified. - Lobular involvement (cancerization) by DCIS: Not | | | applicable. - Microcalcifications: Absent. - Surgical margins: Free | | | of carcinoma. Closest margin measured grossly is 3 mm to the medial | | | margin. 2nd closest margin is 5 mm to the posterior. - Lymph nodes | | | (pNx): Not applicable. - Non-neoplastic breast: Atrophic changes. - | | | Skin/Nipple: Not applicable. - ER/MN/Her-2/tavon/Ki-67: B1 block | | | submitted. - Tumor site (quadrant/clock position): Not specified. - | | | Tumor focality: Unifocal. - 7th Ed AJCC Stage - at least Stage IA - | | | pT1c, pNx, G3. Comment: Results of ER, MN, HER-2/tavon and Ki-67 | | | will follow in an addendum report. As part of the Quality | | | Assurance Program, this case was reviewed by another member of [facility] | | | Pathology (BES). INTRAOPERATIVE CONSULTATION: FROZEN | | | SECTION: DATE AND TIME: 03/31/2013 AT 1205 H REPORTED TO: | | | DR. CORDERO REPORTED BY: DR. TRACEY FROZEN DIAG: | | | (FSA1) NO TUMOR IS PRESENT. (TWK) NO FROZEN SECTION | | | PERMANENTS PENDING: DATE AND TIME: 03/31/2013 AT 1215 H REPORTED | | | BY: DR. TRACEY DIAGNOSIS: TUMOR IDENTIFIED. | | | CLOSEST MARGIN IS POSTEROMEDIAL AT 3 MM. NEXT CLOSEST MARGIN IS 5-6 | | | MM TO THE POSTERIOR. (TWK) CLINICAL HISTORY: 03/31/2013 at | | | 11:49 H. Rt breast mass. GROSS DESCRIPTION: Two specimens are | | | received in two containers, labeled with the patient's name: A. | | | Received fresh for intraoperative consult designated "right breast | | | tissue ", consists of a 51.0 gram oriented portion of fibroadipose | | | tissue. The specimen is 8.2 and 7.0 x 2.3 cm. 4 silk sutures | | | identify the superior margin and one silk suture identifies the | | | medial margin. The specimen is inked as follows: superior - blue; | | | inferior - green; medial - red; lateral - orange; anterior - yellow; | | | and posterior - black. The specimen is serially sectioned from medial | | | to lateral to reveals 95 % of the specimen is a yellow-johnson greasy | | | adipose tissue and 5 % is a white-johnson delicate fibrous tissue. No | | | discrete mass lesions are grossly identified. Catering Sales Manager sections | | | are submitted in nine cassettes. Cassette summary: (A1-A3) | | | fibrous tissue submitted from medial to lateral; (A4) superior soft | | | tissue margin, perpendicular; (A5) inferior soft tissue margin, | | | perpendicular; (A6) medial soft tissue margin, perpendicular; (A7) | | | lateral soft tissue margin, perpendicular; (A8) anterior soft tissue | | | margin, perpendicular; (A9) posterior soft tissue margin, | | | perpendicular. Initial time in formalin: 12:15 hours, 03/31/2013 | | | End time in formalin: 19:40 hours, 04/01/2013 B. Received fresh for | | | intraoperative consult designated "right breast tissue specimen | | | posterior to specimen one ", consists of a 32.4 gram oriented portion | | | of fibroadipose tissue. The specimen is 5.0 x 3.5 x 3.0 cm. Four | | | sutures identify the superior margin and one suture identifies the | | | medial margin. The specimen is inked as follows: superior - blue; | | | inferior - green; medial - red; lateral - orange; anterior - yellow; | | | and posterior - black. The specimen is serially sectioned from medial | | | to lateral to reveal a 1.7 x 1.5 x 1.1 cm white-johnson firm stellate | | | mass that is 1.7 cm from the anterior soft tissue margin, 0.5 cm from | | | the posterior soft tissue margin, 1.0 cm from the superior soft | | | tissue margin, 1.8 cm from the inferior soft tissue margin, 2.6 cm | | | from the lateral soft tissue margin, and 0.3 cm from the medial soft | | | tissue margin. Approximately 90 % of the remaining specimen is a | | | yellow-johnson greasy adipose tissue and 10 % is a white-johnson delicate | | | fibrous tissue. Catering Sales Manager sections are submitted in nine | | | cassettes. Cassette summary: (B1) mass to medial soft tissue | | | margin; (B2) mass to posterior soft tissue margin; (B3) additional | | | section of mass; (B4) superior soft tissue margin, perpendicular; | | | (B5) inferior soft tissue margin, perpendicular; (B6) medial soft | | | tissue margin, perpendicular; (B7) lateral soft tissue margin, | | | perpendicular; (B8) anterior soft tissue margin, perpendicular; (B9) | | | posterior soft tissue margin, perpendicular. Initial time in | | | formalin: 12:15 hours, 03/31/2013 End time in formalin: 19:40 hours, | | | 04/01/2013 FM MICROSCOPIC EXAMINATION: A/B. Histologic | | | sections of all submitted blocks are examined by light microscopy. | | | These findings, together with the gross examination, support the | | | pathologic diagnosis. Immunohistochemical studies were performed | | | on this case with the appropriate negative and positive controls that | | | react as expected. These tests were developed and their performance | | | characteristics determined by [facility] and/or [facility] | | | Pathology. These tests may have not been cleared or approved by the | | | U.S. Food and Drug Administration. The FDA has determined that | | | such clearance or approval is not necessary. This test is intended | | | to be used for clinical purposes. It should not be regarded as | | | investigational or for research. [facility] and [facility] are | | | certified under the Clinical Laboratory Improvement Amendment Act of | | | 1988 (CLIA) as qualified to perform high complexity clinical | | | laboratory testing. This report has been prepared using a voice | | | recognition system. The report was reviewed for accuracy, however, | | | sound-alike word errors, addition and/or deletions may occur. If | | | there is any question about this report please contact the | | | originating pathologist. Keyshawn Tracey MD Electronically | | | signed April 03, 2013 2:46:34PM | | + + + + +---------+ + + | Performing | Address | City[facility] | Phone Number | | Organization | | | | + +---------+ + + | EXTERNAL LAB | | | | + +---------+ + + documented in this encounter Visit Diagnoses Not on filedocumented in this encounter
--- OUTSIDE RECORDS SUMMARY | ~2019-11-11 | XMS | Encounter Summary ---
Demographics + + + | Address | [address] | | | [place] [address] | + + + | Home Phone | | + + + | Preferred Language | Unknown | + + + | Marital Status | | + + + | Buddhism Affiliation | 1025 | + + + | Race | Unknown | + + + | Ethnic Group | Unknown | + + + Author + + + | Author | [facility] | | | and [place] | + + + | Organization | [facility] | | | [...] Team Providers + +------+ + | Care Manufacturing Automation Engineer Name | Role | Phone | + +------+ + PCP | Unavailable | + +------+ + Encounter Details +--------+ + + + + | Date | Type | Department | Care Team | Description | +--------+ + + + + | 12/10/ | Hospital | [facility] | Conversion | Breast nodule | | 2014 | Encounter | CONVERSION [address] | Transaction, | | | | | [address] | Provider Unknown | | | | | [place] | | | | | | [address] | (Fax) | | | | | [phone] | | | +--------+ + + + [...]
--- OUTSIDE RECORDS SUMMARY | ~2019-11-11 | XMS | Clinical Summary ---
Demographics + + + | Address | [address] | | | [place] [address] | + + + | Home Phone | | + + + | Preferred Language | Unknown | + + + | Marital Status | | + + + | Faith Affiliation | 1025 | + + + | Race | Unknown | + + + | Ethnic Group | Unknown | + + + Author + + + | Author | [facility] | | | and [place] | + + + | Organization | [facility] | | [...] Team Providers + +------+ + | Care Bench Worker Hollow Handle Name | Role | Phone | + +------+ + | Lucius Ramírez DO | PCP | | + +------+ + Allergies No Known Allergies Medications + + + +---------+------+------+-------+ | Medication | Sig | Dispensed | Refills | Star | End | Statu | | | | | | t | Date | s | | | | | | Date | | | + + + +---------+------+------+-------+ | amLODIPine | Take 1 tablet by | 30 | 2 | 11/1 | | Activ | | (NORVASC) 2.5 mg | mouth Daily. | tablet | | 220 | | e | | tabletIndications: | | | | 19 | | | | Essential | | | | | | | | hypertension | | | | | | | + + + +---------+------+------+-------+ | | Take 1 tablet by | 30 | 2 | 09/26 | | Activ | | lisinopril-hydrochlo | mouth Daily. | tablet | | 01/15 | | e | | rothiazide | | | | 19 | | | | (PRINZIDE,ZESTORETIC | | | | | | | | ) 20-25 MG per | | | | | | | | tabletIndications: | | | | | | | | Essential | | | | | | | | hypertension | | | | | | | + + + +---------+------+------+-------+ Active Problems + + + | Problem | Noted Date | + + + | Essential hypertension | 10/07/2019 | + + + | Chest discomfort | 2016 | + + + + + | Overview: Last Assessment & Plan: 66 yr old female with h/o | | HTN, obesity, come for cardiology evaluation for chest [...] | + + + + + | Malignant neoplasm of breast | 04/09/2013 | + + + | Breast mass | 03/27/2013 | + + + + + | Overview: Right | + + Encounters +--------+ + + + + | Date | Type | Specialty | Care Team | Description | +--------+ + + + + | 10/07/ | Office | Primary Care | Lucius Ramírez | Atypical chest pain | | 2019 | Visit | | E, DO | (Primary Dx); | | | | | | Essential | | | | | | hypertension; Arm | | | | | | mass, left; Urge | | | | | | incontinence of | | | | | | urine; Adjustment | | | | | | disorder with | | | | | | depressed mood; | | | | | | Screening for | | | | | | deficiency anemia; | | | | | | Screening for | | | | | | thyroid disorder; | | | | | | Need for influenza | | | | | | vaccination | +--------+ + + + + | 10/06/ | Abstract | Primary Care | Lucius Ramírez | | | 2018 | | | EDO | | +--------+ + + + + | 10/03/ | Abstract | Primary Care | Basilia Rivers, | | | 2018 | | | CC CARDIOPULMONARY TECHNICIAN | | +--------+ + + + + from Last 3 Months Immunizations + + + + | Name | Administration Dates | Next Due | + + + + | HEP A, 2 DOSE | 03/16/2014 | | | (ADULT) | | | + + + + | HEP B, 3 DOSE | 03/16/2014 | | | (ADULT) | | | + + + + | INFLUENZA 65 Y OR >, | 10/07/2019, 02/07/2018 | | | TRIVALENT HIGH-DOSE | | | + + + + | PNEUMOCOCCAL | 09/26/2018 | | | CONJUGATE 13-VALENT | | | | (PCV13) | | | + + + + | TDAP, (ADOL/ADULT) | 03/16/2014 | | + + + + | TYPHOID, ORAL (LIVE) | 03/16/2014 | | + + + + Family History + + +------+ + | Medical History | Relation | Name | Comments | + + +------+ + | Arthritis | Father | | | + + +------+ + | Gout | Father | | | + + +------+ + | Heart disease | Father | | | + + +------+ + | Hypertension | Father | | | + + +------+ + | Osteoporosis | Father | | | + + +------+ + | Prostate cancer | Father | | | + + +------+ + | Breast cancer | Mother | | | + + +------+ + | Diabetes | Mother | | | + + +------+ + | Gallstones | Mother | | | + + +------+ + | Thyroid disease | Mother | | | + + +------+ + | No known problems | Son | | | + + +------+ + + +------+ + + | Relation | Name | Status | Comments | + +------+ + + | Father | | | | + +------+ + + | Mother | | | | + +------+ + + | Son | | Alive | | + +------+ + + Social History + + + +--------+ + | Tobacco Use | Types | Packs/Day | Years | Date | | | | | Used | | + + + +--------+ + | Former Smoker | Cigarettes | 0.5 | 4 | Quit: 1970 | + + + +--------+ + + +---+---+---+ | Smokeless Tobacco: | | | | | Never Used | | | | + +---+---+---+ + + | Tobacco Cessation: Counseling Given: No | + + + + +---------+ + | Alcohol Use | Drinks/Week | oz/Week | Comments | + + +---------+ + | Yes | 0 Glasses of wine | 3.0 | | | | 3 Cans of beer 0 | | | | | Shots of liquor | | | + + +---------+ + + + + + | Alcohol Habits | Answer | Date Recorded | + + + + | How often do you have a drink containing | 2-3 times a week | 10/07/2019 | | alcohol? | | | + + + + | How many drinks containing alcohol do you | 1 or 2 | 10/03/2019 | | have on a typical day when you are | | | | drinking? | | | + + + + | How often do you have six or more drinks on | Never | 10/07/2019 | | one occasion? | | | [...] recent travel history available. | + + Last Filed Vital Signs + + + + + | Vital Sign | Reading | Time Taken | Comments | + + + + + | Blood Pressure | 146/82 | 10/07/2019 8:43 AM | Large cuff, right | | | | PST | arm | + + + + + | Pulse | 62 | 10/07/2019 8:43 AM | R | | | | PST | | + + + + + | Temperature | - | - | | + + + + + | Respiratory Rate | 16 | 10/07/2019 8:43 AM | | | | | PST | | + + + + + | Oxygen Saturation | 97% | 10/07/2019 8:43 AM | RA | | | | PST | | + + + + + | Inhaled Oxygen | - | - | | | Concentration | | | | + + + + + | Weight | 98.7 kg (217 lb 9.6 | 10/07/2019 8:43 AM | | | | oz) | PST | | + + + + + | Height | 175.3 cm (5' 9") | 10/07/2019 8:43 AM | Stated | | | | PST | | + + + + + | Body Mass Index | 32.13 | 10/07/2019 8:43 AM | | | | | PST | | + + + + + Plan of Treatment + + + + + | Health Maintenance | Due Date | Last Done | Comments | + + + + + | Hepatitis C | | | | | Screening | 0 | | | + + + + + | Colorectal Cancer | | | | | Screening | 0 | | | | (Colonoscopy) | | | | + + + + + | Vaccine: Zoster (1 | | | | | of 2) | 0 | | | + + + + + | Adult Annual | | | | | Wellness Visit | 9 | | | + + + + + | Vaccine: | | 09/26/2018 | | | Pneumococcal 65+ (2 | 9 | | | | of 2 - PPSV23) | | | | + + + + + | Breast Cancer | | 10/24/2018, 03/17/2013 | | | Screening | 0 | | | + + + + + | Vaccine: | | 03/16/2014 | | | Dtap/Tdap/Td (2 - | 4 | | | | Td) | | | | + + + + + | Vaccine: Influenza | Completed | 10/07/2019, 02/07/2018 | | + + + + + Procedures + +--------+ + + + | Procedure Name | Priori | Date/Time | Associated Diagnosis | Comments | | | ty | | | | + +--------+ + + + | ECG - EXTERNAL SCAN | | 10/08/2019 | | Results for this | | | | 12:00 AM | | procedure are in the | | | | PST | | results section. | + +--------+ + + + from Last 3 Months Results ECG - EXTERNAL SCAN (10/08/2019 12:00 AM PST) + + + | Narrative | Performed At | + + + | Ordered by an | | | unspecified provider. | | + + + from Last 3 Months Insurance + +--------+ +--------+ +---------+--------+ | Payer | Benefi | Subscriber | Effect | Phone | Address | Type | | | t Plan | ID | dejuan | | | | | | / | | Dates | | | | | | Group | | | | | | + +--------+ +--------+ +---------+--------+ | MEDICARE | MEDICA | [id number] | 03/26/20 | [phone] | | Medica | | | RE | | 15-Pre | 5 | | re | | | PART A | | sent | | | | | | AND B | | | | | | + +--------+ +--------+ +---------+--------+ | [place] | MEDICA | [id number] | 10/07/ | [phone] | | Medica | | | ID | | 2019-P | 2 | | id | | | [place] | | resent | | | | + +--------+ +--------+ +---------+--------+ + +--------+ +--------+ + + | Guarantor Name | Accoun | Relation to | Date | Phone | Billing Address | | | t Type | Patient | of | | | | | | | | | | + +--------+ +--------+ + + | Letitia Jaffe | Person | Self [birth year] | [address] | | | al/Fam | | 1950 | [phone] | [place] | | | manuel | | | 2 (Home) | [address] | + +--------+ +--------+ + + Advance Directives + + + + + | Type | Date Recorded | Patient | Explanation | | | | Livestock Agent | | + + + + + | Power of | | | | | Advanced Practice Provider | | | | + + + + + | Advance | 10/07/2019 | | | | Directive | 8:21 AM | | | + + + + +
--- OUTSIDE RECORDS SUMMARY | ~2019-11-11 | XMS | Encounter Summary ---
Demographics + + + | Address | [address] | | | [place] [address] | + + + | Home Phone | | + + + | Preferred Language | Unknown | + + + | Marital Status | | + + + | Scientology Affiliation | 1025 | + + + | Race | Unknown | + + + | Ethnic Group | Unknown | + + + Author + + + | Author | [facility] | | | and [place] | + + + | Organization | [facility] | | | [...] Team Providers + +------+ + | Care Ceiling Insulation Blower Name | Role | Phone | + +------+ + | Lucius Ramírez DO | PCP | | + +------+ + Encounter Details +--------+ + + + + | Date | Type | Department | Care Team | Description | +--------+ + + + + | 10/03/ | Abstract | [facility] | Basilia Rivers, | | | 2018 | | [facility] | AFFILIATE MARKETING MANAGER | | | | | [facility]ICAL CL[facility] [address] | | | | | | [facility] [facility] [place], | | | | | | [place] [address] | | | | | | [phone] | | | +--------+ + + + [...] Given: No | + + + + + + [...]
--- OUTSIDE RECORDS SUMMARY | ~2019-11-11 | XMS | Encounter Summary ---
Demographics + + + | Address | [address] | | | [place] [address] | + + + | Home Phone | | + + + | Preferred Language | Unknown | + + + | Marital Status | | + + + | Faith Affiliation | 1025 | + + + | Race | Unknown | + + + | Ethnic Group | Unknown | + + + Author + + + | Author | [facility] | | | and [place] | + + + | Organization | [facility] | | [...] Team Providers + +------+ + | Care Animal Warden Name | Role | Phone | + [...] Medication Refill | | 2018 | | [facility] | INSTRUMENT AND ELECTRICAL TECHNICIAN | | | | | MEDICAL CLINIC [address] | | | | | [address] [place], | | | | | | [place] [address] | | | | | | [phone] | | | +--------+--------+ + + + [...]
--- OUTSIDE RECORDS SUMMARY | ~2019-11-11 | XMS | Encounter Summary ---
Demographics + + + | Address | [address] | | | [place] [address] | + + + | Home Phone | | + + + | Preferred Language | Unknown | + + + | Marital Status | | + + + | Jewish Affiliation | 1025 | + + + | Race | Unknown | + + + | Ethnic Group | Unknown | + + + Author + + + | Author | [facility] | | | and [place] | + + + | Organization | [facility] | | | [...] Team Providers + +------+ + | Care Coal Hiker Name | Role | Phone | + +------+ + PCP | Unavailable | + +------+ + Encounter Details +--------+ + + + + | Date | Type | Department | Care Team | Description | +--------+ + + + + | 03/25/ | Hospital | [facility] | Conversion | | | 2012 | Encounter | [facility] | Transaction, | | | | | CLINIC [address] | Provider Unknown | | | | | [place], [place] | | | | | | [address] | (Fax) | | | | | [phone] | | | +--------+ + + + [...]
--- OUTSIDE RECORDS SUMMARY | ~2019-11-11 | XMS | Encounter Summary ---
Demographics + + + | Address | [address] | | | [place] [address] | + + + | Home Phone | | + + + | Preferred Language | Unknown | + + + | Marital Status | | + + + | Sikh Affiliation | 1025 | + + + | Race | Unknown | + + + | Ethnic Group | Unknown | + + + Author + + + | Author | [facility] | | | and [place] | + + + | Organization | [facility] | | [...] Team Providers + +------+ + | Care Corporate Human Resources Manager Name | Role | Phone | + +------+ + PCP | Unavailable | + +------+ + Reason for Visit + + + | Reason | Comments | + + + | Medication Refill | | + + + Encounter Details +--------+--------+ + + + | Date | Type | Department | Care Team | Description | +--------+--------+ + + + | 04/30/ | Refill | [facility] | Lucius Ramírez | Medication Refill | | 2018 | | [facility] | E, DO [address] | | | | | MEDICAL CLIN[facility] [address] | [place], [place] | | | | | [address] [place], | [address] | | | | | [place] [address] | [phone] | | | | | [phone] | | | +--------+--------+ + + + [...]
--- OUTSIDE RECORDS SUMMARY | ~2019-11-11 | XMS | Encounter Summary ---
Demographics + + + | Address | [address] | | | [place] [address] | + + + | Home Phone | | + + + | Preferred Language | Unknown | + + + | Marital Status | | + + + | Scientologist Affiliation | 1025 | + + + | Race | Unknown | + + + | Ethnic Group | Unknown | + + + Author + + + | Author | [facility] | | | and [place] | + + + | Organization | [facility] | | | [...] Team Providers + +------+ + | Care Cancer Program Director Name | Role | Phone | + +------+ + | Lucius Ramírez DO | PCP | | + +------+ + Encounter Details +--------+ + + + + | Date | Type | Department | Care Team | Description | +--------+ + + + + | 12/04/ | Orders Only | [facility] | Sukhdeep Mayen | | | 2017 | | CARDIOLOGY VANCE Parker MD [address] | | | | | NUC MED [address] | [address] | | | | | [address] | [place] [address] | | | | | [place], [place] | [phone] | | | | | [address] | | | | | | [phone] | | | +--------+ + + + [...] | + +--------+ + + + | NM NUCLEAR STRESS | Routin | 12/04/2016 | | Results for this | | TEST (PHARMACOLOGIC | e | 2:52 PM | | procedure are in the | | - VASODILATOR) | | PST | | results section. | + +--------+ + + + documented in this encounter Results NM Nuclear Stress Test (Vasodilator) (12/04/2016 2:52 PM PST) + + | Specimen | + + | | + + + + + | Impressions | Performed At | + + + | Low risk myocardial perfusion imaging. No ischemia noted. Breast | | | attenuation artifact noted. Poor exercise capacity. Stress EKG | | | negative for ischemia. Normal LV systolic function with no wall | | | motion abnormalities. Sukhdeep Mayen MD | | | | | + + + + + + | Narrative | Performed At | + + + | [facility] [address], [place], [place] | | | [phone] NUCLEAR TREADMILL STRESS TEST TEST DATE: | | | 12/04/2016 NAME: Letitia Jaffe : 1950 | | | ORDERING MD: Sukhdeep Mayen MD INDICATION FOR TEST: 66 year | | | old female being evaluated for preoperative Evaluation RISK | | | FACTORS: hypertension, obesity, post menopause PROCEDURE: Jalen | | | protocol. Rest dose- 11.9 mCi of 99m Tc Myoview given intravenously. | | | Stress dose- At 02:50 minutes 34.3 mCi of 99m Tc Myoview given | | | intravenously. Effective Dose Equivalent: 15.9 mSv. The predicted | | | exercise time was 04:30 minutes. Patient's Predicted Maximum HR: | | | 154. Patient's Predicted 85% Max HR: 131. REST DATA: HR: 70 bpm | | | BP: 161/95 Rest EKG shows NSR 71BPM, poor R wave progression, left | | | axis. STRESS DATA: Exercise Time: 02:58minutes, HR achieved: 137 | | | bpm, Max BP 171/110. RPP: 44093. METS: 4.60.Symptoms none. The test | | | was terminated due to bilateral leg fatigue. Max heart rate 137 bpm at | | | 88% of MPHR. Stress EKG shows no significant ST T changes noted, | | | few PACs noted. GATED IMAGES: Rest EDV: 82 mL Rest ESV: 21 mL | | | Stress EDV: 87 mL Stress ESV: 22 mL. EJECTION FRACTION: REST EF: | | | 75% STRESS EF: 75%. IMAGIN. The quality of the study is | | | limited by breast attenuation artifact. 2. Perfusion showed | | | moderate sized anterior-septal and apical defect at rest improved to | | | some extent but persisted on stress images with no wall motion | | | abnormalities in the territory consistent with breast attenuation | | | artifact. 3. LV Cavity size is normal with TID: 1.07). 4. Gated | | | SPECT images showed normal LV systolic function with no wall motion | | | abnormalities. 5. There is no previous test to compare with. | | + + + + + | Procedure Note | + + | Judd, Rad Conversion - 07/17/[address] [facility] [id number] [facility] | | Dr [place], [phone] NUCLEAR TREADMILL STRESS TESTTEST DATE: | | 12/04/2016NAME: Ruth Jaffe: 1950MRN: [id number] MD: Sukhdeep | | MD Faheem INDICATION FOR TEST: 66 year old female being evaluated for preoperative | | Evaluation RISK FACTORS: hypertension, obesity, post menopause PROCEDURE: Jalen | | protocol. Rest dose- 11.9 mCi of 99m Tc Myoview given intravenously. Stress dose- At | | 02:50 minutes 34.3 mCi of 99m Tc Myoview given intravenously. Effective Dose Equivalent: | | 15.9 mSv. The predicted exercise time was 04:30 minutes. Patient's Predicted Maximum | | HR: 154. Patient's Predicted 85% Max HR: 131. REST DATA: HR: 70 bpm BP: 161/95 Rest EKG | | shows NSR 71BPM, poor R wave progression, left axis. STRESS DATA: Exercise Time: | | 02:58minutes, HR achieved: 137 bpm, Max BP 171/110. RPP: 17009. METS: 4.60.Symptoms | | none. The test was terminated due to bilateral leg fatigue. Max heart rate 137 bpm at | | 88% of MPHR. Stress EKG shows no significant ST T changes noted, few PACs noted. GATED | | IMAGES: Rest EDV: 82 mL Rest ESV: 21 mL Stress EDV: 87 mL Stress ESV: 22 mL. EJECTION | | FRACTION: REST EF: 75% STRESS EF: 75%. IMAGIN. The quality of the study is limited | | by breast attenuation artifact.2. Perfusion showed moderate sized anterior-septal and | | apical defect at rest improved to some extent but persisted on stress images with no | | wall motion abnormalities in the territory consistent with breast attenuation | | artifact.3. LV Cavity size is normal with TID: 1.07).4. Gated SPECT images showed | | normal LV systolic function with no wall motion abnormalities.5. There is no previous | | test to compare with. IMPRESSION: Low risk myocardial perfusion imaging.No ischemia | | noted.Breast attenuation artifact noted.Poor exercise capacity.Stress EKG negative for | | ischemia.Normal LV systolic function with no wall motion abnormalities. Sukhdeep | | MD Faheem | | | |EJECTION FRACTION: REST EF: 75% STRESS EF: 75%. | | | |IMAGING: | |1. The quality of the study is limited by breast attenuation artifact. | |2. Perfusion showed moderate sized anterior-septal and apical defect at rest improved to s ome extent but persisted on stress images with no wall motion abnormalities in the territory consistent with breast attenuation artifact. | |3. LV Cavity size is normal with TID: 1.07). | |4. Gated SPECT images showed normal LV systolic function with no wall motion abnormalities . | |5. There is no previous test to compare with. | | | |IMPRESSION: | |Low risk myocardial perfusion imaging. | |No ischemia noted. | |Breast attenuation artifact noted. | |Poor exercise capacity. | |Stress EKG negative for ischemia. | |Normal LV systolic function with no wall motion abnormalities. | | | | | | | |Sukhdeep Mayen MD | | | | | + + documented in this encounter Visit Diagnoses Not on filedocumented in this encounter"
--- OUTSIDE RECORDS SUMMARY | ~2019-11-11 | XMS | Encounter Summary ---
Demographics + + + | Address | [address] | | | [place] [address] | + + + | Home Phone | | + + + | Preferred Language | Unknown | + + + | Marital Status | | + + + | Buddhist Affiliation | 1025 | + + + | Race | Unknown | + + + | Ethnic Group | Unknown | + + + Author + + + | Author | [facility] | | | and [place] | + + + | Organization | [facility] | | | [...] Team Providers + +------+ + | Care Machine Assembler For Puller Over Name | Role | Phone | + +------+ + | Lucius Ramírez DO | PCP | | + +------+ + Reason for Referral Self-referral (Routine) + + + + + + + | Status | Reason | Specialty | Diagnoses / | Referred By | Referred To | | | | | Procedures | Contact | Contact | + + + + + + + | Authorized | Specialty | Urology | Diagnoses | Desiree, Jass Echavarria | | | Services | | Urge | Lucius Victor, | Dolores Menendez, | | | Required | | incontinence | DO [address] | MD [address] | | | | | of urine | [address] | [address] | | | | | | [place], [place] | [place], [place] | | | | | | [address] | [address] | | | | | | Phone: | Phone: | | | | | | [phone] | [phone] | | | | | | Fax: | Fax: | | | | | | [phone] | [phone] | + + + + + + + Reason for Visit + + + | Reason | Comments | + + + | Hypertension | | + + + | Mass | left elbow, x months | + + + | Establish Care | | + + + Encounter Details +--------+---------+ + + + | Date | Type | Department | Care Team | Description | +--------+---------+ + + + | 10/07/ | Office | [facility] | Lucius Ramírez | Atypical chest pain | | 2019 | Visit | [facility] | E, DO [address] | (Primary Dx); | | | | [facility] [address] | [facility], [place] | Essential | | | | [address] [facility], | [address] | hypertension; Arm | | | | [place] [address] | [phone] | mass, left; Urge | | | | [phone] | | incontinence of | | | [...] | | | | | vaccination | +--------+---------+ + + + Social History + + + [...] + + documented as of this encounter Last Filed Vital Signs + + + [...] | | + + + + + documented in this encounter Progress Notes Lucius Ramírez DO - 10/07/2019 8:40 AM PST Patient ID: Letitia Jaffe is a 69 y.o. year old female Chief Complaint: Chief Complaint Patient presents with Hypertension Mass left elbow, x months Establish Care Assessment 1. Atypical chest pain - ECG 12 lead; Future 2. Essential hypertension - amLODIPine (NORVASC) 2.5 mg tablet; Take 1 tablet by mouth Daily. Dispense: 30 tablet; R efill: 2 - lisinopril-hydrochlorothiazide (PRINZIDE,ZESTORETIC) 20-25 MG per tablet; Take 1 tablet b y mouth Daily. Dispense: 30 tablet; Refill: 2 - Comprehensive Metabolic Panel; Future - Lipid Panel; Future 3. Arm mass, left - US Extremity Nonvascular Limited Left; Future 4. Urge incontinence of urine - Urinalysis; Future - Urology, External - AMB Referral 5. Adjustment disorder with depressed mood 6. Screening for deficiency anemia - CBC with Differential; Future 7. Screening for thyroid disorder - TSH; Future 8. Need for influenza vaccination - Influenza *PF 65 yrs or >, Trivalent HIGH-DOSE PFSK (Fluzone) [[id number]] Plan: -Ordered a 12 lead ECG. Results showed sinus rhythm 58 bpm. -Reassured patient that the chest pain may be due to the personal stress that she is experi encing. Advised patient to follow up immediately or go to the ER if pain worsens or does not go away. If symptoms continue will perform a stress test. -Advised patient to speak with her trusted rn cardiovascular or counselor to relieve some of the stres s. -Ordered an US of the left antecubital space. Will contact patient with results. -BP today was 146/82. The patient did not take her BP medication today. -Refills provided for lisinopril-HCTZ and amlodipine. -Referral provided for urology. -UA and fasting blood work ordered. Will contact patient with the results. -PHQ2 screening was negative today. -Flu shot administered today. -FU PRN. Subjective: HPI: Patient presents to the clinic to establish care. She is a former patient of [employer] in [facility]. The patient reports pain in her chest while relaxing and sitting, for 5 minutes at a time. The most recent episode was last week. She states that the pain has been occurring since the personal stress regarding her mother and her sister. She describes the pain as sharp, but d enies palpitations or irregular heartbeats. She denies sweating, SOB, or radiation of pain. She states that cold water or drinking fluid helps the pain. She denies any other triggers b eside sitting back. She has not taken any antacids or medication for the pain. The patient has HTN, which she manages with amlodipine and lisinopril-HCTZ. She has not arcelia en her lisinopril-HCTZ or amlodipine today. She has a mass on her left elbow for several months now. She reports tingling in her left 4 th and 5th digits fingertips beyond the mass. She tried an experimental salve that exacerba mikey the size of her mass. She reports urge uincontinence. She states she has trouble making it to the bathroom on lucy e. She states she has been depressed for the past 2 years, but recently she states she has bee n "coming out of her funk". She has some personal tragedy and stress regarding her mother an d her sister currently. Current Outpatient Medications Medication Sig Dispense Refill amLODIPine (NORVASC) 2.5 mg tablet Take 1 tablet by mouth Daily. (Patient not taking: R eported on 10/07/2019) 30 tablet 2 lisinopril-hydrochlorothiazide (PRINZIDE,ZESTORETIC) 20-25 MG per tablet Take 1 tablet by mouth Daily. 30 tablet 2 No current facility-administered medications for this visit. Patient Active Problem List Diagnosis Breast mass Chest discomfort Malignant neoplasm of breast Essential hypertension Family History Problem Relation Age of Onset Gallstones Mother Diabetes Mother Thyroid disease Mother Breast cancer Mother Heart disease Father Hypertension Father Prostate cancer Father Arthritis Father Gout Father Osteoporosis Father No known problems Son Past Surgical History: Procedure Laterality Date BREAST BIOPSY Right 03/31/2013 Procedure: BREAST - BIOPSY; Surgeon: Travon Ramirez MD; Location: [facility]; Ser vice: General; Laterality: Right; intraoperative frozen section BREAST LUMPECTOMY Right 03/31/2013 Procedure: BREAST - LUMPECTOMY; Surgeon: Travon Ramirez MD; Location: [facility]; Service: General; Laterality: Right; SECTION COLONOSCOPY FINGER SURGERY HYSTERECTOMY JOINT REPLACEMENT 2016 hip JOINT REPLACEMENT 2017 knee OTHER SURGICAL HISTORY Right 04/14/2013 SENTINEL LYMPH NODE BIOPSY - Procedure: SENTINEL BX TONSILLECTOMY AND ADENOIDECTOMY TOTAL HYSTERECTOMY Social History Socioeconomic History Marital status: Spouse name: Not on file Number of children: 5 Years of education: Not on file Highest education level: Not on file Occupational History Occupation: Retired Social Needs Financial resource strain: Not on file Food insecurity: Worry: Not on file Inability: Not on file Transportation needs: Medical: Not on file Non-medical: Not on file Tobacco Use Smoking status: Former Smoker Packs/day: 0.50 Years: 4.00 Pack years: 2.00 Types: Cigarettes Last attempt to quit: 1970 Years since quittin.8 Smokeless tobacco: Never Used Substance and Sexual Activity Alcohol use: Yes Alcohol/week: 3.0 standard drinks Types: 3 Cans of beer per week Frequency: 2-3 times a week Drinks per session: 1 or 2 Binge frequency: Never Drug use: Never Comment: Caffeine: 3-4 cups daily Sexual activity: Yes Partners: Male control/protection: Surgical Lifestyle Physical activity: Days per week: Not on file Minutes per session: Not on file Stress: Not on file Relationships Social connections: Talks on phone: Not on file Gets together: Not on file Attends orthodoxy service: Not on file Active member of club or organization: Not on file Attends meetings of clubs or organizations: Not on file Relationship status: Not on file Intimate partner violence: Fear of current or ex partner: Not on file Emotionally abused: Not on file Physically abused: Not on file Forced sexual activity: Not on file Other Topics Concern Not on file Social History Narrative Not on file No Known Allergies Review of Systems Constitutional: Negative for diaphoresis. Respiratory: Negative for shortness of breath. Cardiovascular: Positive for chest pain. Negative for palpitations. Genitourinary: Positive for enuresis and urgency (incontinence). Skin: Mass on left arm Psychiatric/Behavioral: Positive for dysphoric mood (better). Objective: Vitals: BP 146/82 Comment: Large cuff, right arm | Pulse 62 Comment: R | Resp 16 | Ht 1.753 m (5' 9") Comment: Stated | Wt 98.7 kg (217 lb 9.6 oz) | LMP (LMP Unknown) | SpO2 97% Comment: RA | No | BMI 32.13 kg/m Physical Exam Constitutional: She is oriented to person, place, and time. She appears well-developed and well-nourished. HENT: Head: Normocephalic and atraumatic. Right Ear: External ear normal. Left Ear: External ear normal. Nose: Nose normal. Mouth/Throat: Oropharynx is clear and moist. No oropharyngeal exudate. Eyes: Pupils are equal, round, and reactive to light. Conjunctivae and EOM are normal. Neck: Normal range of motion. Neck supple. No thyromegaly present. Cardiovascular: Normal rate, regular rhythm, normal heart sounds and intact distal pulses. Pulmonary/Chest: Effort normal and breath sounds normal. Abdominal: Soft. Bowel sounds are normal. Neurological: She is alert and oriented to person, place, and time. She has normal reflexes . Skin: Left antecubital space has soft tissue mass that is 2.5 cm in diameter. Psychiatric: She has a normal mood and affect. Her behavior is normal. Judgment and thought content normal. 1. Little interest/pleasure in doing things? : Not at all (10/07/19839) 2. Feeling down , depressed/hopeless?: Several days (10/07/19839) PHQ2 Screening: Negative (10/07/19 084 0) This documentation prepared by Yesenia Gunn, medical physics teacher. All aspects of this chart review ed for accuracy and content by Lucius Ramírez DO at the date and time of service. Electronically signed by: Dr. Lucius Ramírez DO 10/07/2019 9:35 AM documented in this encounter Plan of Treatment + +---------+--------+ + + | Name | Type | Priori | Associated Diagnoses | Order Schedule | | | | ty | | | + +---------+--------+ + + | ECG 12 lead | ECG | Routin | Atypical chest | 1 Occurrences | | | | e | pain | starting 10/07/2019 | | | | | | until 10/07/2020 | + +---------+--------+ + + | US Extremity | Imaging | Routin | Arm mass, left | Expected: | | Nonvascular Limited | | e | | 10/07/2019, Expires: | | Left | | | | 10/07/2020 | + +---------+--------+ + + | CBC with | Lab | Routin | Screening for | 1 Occurrences | | Differential | | e | deficiency anemia | starting 10/07/2019 | | | | | | until 10/07/2020 | + +---------+--------+ + + | Comprehensive | Lab | Routin | Essential | 1 Occurrences | | Metabolic Panel | | e | hypertension | starting 10/07/2019 | | | | | | until 10/07/2020 | + +---------+--------+ + + | Lipid Panel | Lab | Routin | Essential | 1 Occurrences | | | | e | hypertension | starting 10/07/2019 | | | | | | until 10/07/2020 | + +---------+--------+ + + | TSH | Lab | Routin | Screening for | 1 Occurrences | | | | e | thyroid disorder | starting 10/07/2019 | | | | | | until 10/07/2020 | + +---------+--------+ + + | Urinalysis | Lab | Routin | Urge incontinence | 1 Occurrences | | | | e | of urine | starting 10/07/2019 | | | | | | until 10/07/2020 | + +---------+--------+ + + + + +--------+ + + | Name | Type | Priori | Associated Diagnoses | Order Schedule | | | | ty | | | + + +--------+ + + | Urology, External - | Outpatient | Routin | Urge incontinence | Ordered: 10/07/2019 | | AMB Referral | Referral | e | of urine | | + + +--------+ + + documented as of this encounter Procedures + +--------+ [...] + + documented in this encounter Results ECG - EXTERNAL SCAN (10/08/2019 12:00 AM PST) + + + | Narrative | Performed At | + + + | Ordered by an | | | unspecified provider. | | + + + documented in this encounter Visit Diagnoses + + | Diagnosis | + + | Atypical chest pain - Primary Other chest pain | + + | Essential hypertension Unspecified essential hypertension | + + | Arm mass, left | + + | Urge incontinence of urine Urge incontinence | + + | Adjustment disorder with depressed mood | + + | Screening for deficiency anemia Screening for other and unspecified deficiency anemia | + + | Screening for thyroid disorder | + + | Need for influenza vaccination Need for prophylactic vaccination and inoculation | | against influenza | + + documented in this encounter
--- OUTSIDE RECORDS SUMMARY | ~2019-11-11 | XMS | Encounter Summary ---
Demographics + + + | Address | [address] | | | [place] [address] | + + + | Home Phone | | + + + | Preferred Language | Unknown | + + + | Marital Status | | + + + | Scientology Affiliation | 1025 | + + + | Race | Unknown | + + + | Ethnic Group | Unknown | + + + Author + + + | Author | [facility] | | | and [place] | + + + | Organization | [facility] | | | and [...] Team Providers + +------+ + | Care Public Events Facilities Rental Manager Name | Role | Phone | + +------+ + | Lucius Ramírez DO | PCP | | + +------+ + Encounter Details +--------+ + + + + | Date | Type | Department | Care Team | Description | +--------+ + + + + | 10/03/ | Abstract | [facility] | Basilia Rivers, | | | 2018 | | [facility] | DEVELOPER [employer] | | | | | MEDICAL CLIN[facility] [address] | | | | | | [address] [facility] [place], | | | | | | [place] [address] | | | | | | [phone] | | | +--------+ + + + [...]
--- OUTSIDE RECORDS SUMMARY | ~2019-11-11 | XMS | Encounter Summary ---
Demographics + + + | Address | [address] | | | [place] [address] | + + + | Home Phone | | + + + | Preferred Language | Unknown | + + + | Marital Status | | + + + | Islam Affiliation | 1025 | + + + | Race | Unknown | + + + | Ethnic Group | Unknown | + + + Author + + + | Author | [facility] | | | and [place] | + + + | Organization | [facility] | | | [...] Team Providers + +------+ + | Care Biophysics Professor Name | Role | Phone | + [...] Description | +--------+--------+ + + + | 07/14/ | Refill | [facility] | Lucius Ramírez | Medication Refill | | 2018 | | [facility] | E, DO [address] | | | | | MEDICAL CLINIC [address] | [place], [place] | | | | | [address] [place], | [address] | | | | | [place] [address] | [phone] | | | | | [phone] | | | +--------+--------+ + + + [...]
--- OUTSIDE RECORDS SUMMARY | ~2019-11-11 | XMS | Encounter Summary ---
Demographics + + + | Address | [address] | | | [place] [address] | + + + | Home Phone | | + + + | Preferred Language | Unknown | + + + | Marital Status | | + + + | Amish Affiliation | 1025 | + + + | Race | Unknown | + + + | Ethnic Group | Unknown | + + + Author + + + | Author | [facility] | | | and [place] | + + + | Organization | [facility] | | | [...] Team Providers + +------+ + | Care Lining Marker Name | Role | Phone | + +------+ + PCP | Unavailable | + +------+ + Encounter Details +--------+ + + + + | Date | Type | Department | Care Team | Description | +--------+ + + + + | 04/09/ | Hospital | [facility] | Conversion | | | 2012 | Encounter | [facility] | Transaction, | | | | | CLINIC [address] | Provider Unknown | | | | | [place], [place] | | | | | | [address] | (Fax) | | | | | [phone] | | | +--------+ + + + [...]
--- OUTSIDE RECORDS SUMMARY | ~2019-11-11 | XMS | Encounter Summary ---
Demographics + + + | Address | [address] | | | [place] [address] | + + + | Home Phone | | + + + | Preferred Language | Unknown | + + + | Marital Status | | + + + | Temple Affiliation | 1025 | + + + | Race | Unknown | + + + | Ethnic Group | Unknown | + + + Author + + + | Author | [facility] | | | and [place] | + + + | Organization | [facility] | | | [...] Team Providers + +------+ + | Care Contract Administrative Assistant Name | Role | Phone | + +------+ + PCP | Unavailable | + +------+ + Encounter Details +--------+ + + + + | Date | Type | Department | Care Team | Description | +--------+ + + + + | 04/09/ | Hospital | [facility] | Conversion | | | 2012 | Encounter | [facility] | Transaction, | | | | | CLINIC [address] | Provider Unknown | | | | | [place], [place] | | | | | | [address] | (Fax) | | | | | [phone] | | | +--------+ + + + [...]
--- OUTSIDE RECORDS SUMMARY | ~2019-11-11 | XMS | Encounter Summary ---
Demographics + + + | Address | [address] | | | [place] [address] | + + + | Home Phone | | + + + | Preferred Language | Unknown | + + + | Marital Status | | + + + | Advent Affiliation | 1025 | + + + | Race | Unknown | + + + | Ethnic Group | Unknown | + + + Author + + + | Author | [facility] | | | and [place] | + + + | Organization | [facility] | | | [...] Team Providers + +------+ + | Care Beauty Counselor Name | Role | Phone | + +------+ + | Lucius Ramírez DO | PCP | | + +------+ + Encounter Details +--------+ + + + + | Date | Type | Department | Care Team | Description | +--------+ + + + + | 10/06/ | Abstract | [facility] | Lucius Ramírez | | | 2019 | | [facility] | E, DO [address] | | | | | MEDICAL CLINIC [address] | [place] | | | | | [address] [place], | [address] | | | | | [place] [address] | [phone] | | | | | [phone] | | | +--------+ + + + [...] St. | | | | | | [facility] | | | | + + + + + + documented in this encounter Visit Diagnoses Not on filedocumented in this encounter"
--- OUTSIDE RECORDS SUMMARY | ~2019-11-11 | XMS | Encounter Summary ---
Demographics + + + | Address | [address] | | | [place] [address] | + + + | Home Phone | | + + + | Preferred Language | Unknown | + + + | Marital Status | | + + + | Temple Affiliation | 1025 | + + + | Race | Unknown | + + + | Ethnic Group | Unknown | + + + Author + + + | Author | [facility] | | | and [place] | + + + | Organization | [facility] | | | and [...] Team Providers + +------+ + | Care Digital Marketer Name | Role | Phone | + [...] Medication Refill | | 2018 | | [facility] | E, DO [address] | | | | | MEDICAL CLINIC [address] | [place], [place] | | | | | [address] [place], | [address] | | | | | [place] [address] | [phone] | | | | | [phone] | | | +--------+--------+ + + + [...]
--- OUTSIDE RECORDS SUMMARY | ~2019-11-11 | XMS | Encounter Summary ---
Demographics + + + | Address | [address] | | | [place] [address] | + + + | Home Phone | | + + + | Preferred Language | Unknown | + + + | Marital Status | | + + + | Congregation Affiliation | 1025 | + + + | Race | Unknown | + + + | Ethnic Group | Unknown | + + + Author + + + | Author | [facility] | | | and [place] | + + + | Organization | [facility] | | | [...] Team Providers + +------+ + | Care Supply Officer Name | Role | Phone | + [...] Medication Refill | | 2018 | | [facility] | CARTOGRAPHY TECHNICIAN | | | | | MEDICAL CLINIC [address] | | | | | | 4TH [facility] [place], | | | | | | [place] [address] | | | | | | [phone] | | | +--------+--------+ + + + [...]
--- OUTSIDE RECORDS SUMMARY | ~2019-11-11 | XMS | Encounter Summary ---
Demographics + + + | Address | [address] | | | [place] [address] | + + + | Home Phone | | + + + | Preferred Language | Unknown | + + + | Marital Status | | + + + | Alevism Affiliation | 1025 | + + + [...] Team Providers + +------+ + | Care Network Firewall Engineer Name | Role | Phone | + +------+ + PCP | Unavailable | + +------+ + Encounter Details +--------+ + + + + | Date | Type | Department | Care Team | Description | +--------+ + + + + | 03/25/ | Hospital | [facility] | Conversion | | | 2012 | Encounter | [facility] | Transaction, | | | | | CLINIC [address] | Provider Unknown | | | | | [place], [place] | | | | | | [address] | (Fax) | | | | | [phone] | | | +--------+ + + + [...]
--- OUTSIDE RECORDS SUMMARY | ~2019-11-11 | XMS | Encounter Summary ---
Demographics + + + | Address | [address] | | | [place] [address] | + + + | Home Phone | | + + + | Preferred Language | Unknown | + + + | Marital Status | | + + + | Mormon Affiliation | 1025 | + + + | Race | Unknown | + + + | Ethnic Group | Unknown | + + + Author + + + | Author | [facility] | | | and [place] | + + + | Organization | [facility] | | | and [...] Team Providers + +------+ + | Care Personal Injury Specialist Name | Role | Phone | + +------+ + PCP | Unavailable | + +------+ + Encounter Details +--------+ + + + + | Date | Type | Department | Care Team | Description | +--------+ + + + + | 03/31/ | Hospital | [facility] | Travon Cordero | | | 2012 | Encounter | [facility] [place] | MD [address] | | | | | CLINICAL DECISION | [address] | | | | | [address] | [place] [address] | | | | | [place], [place] | [phone] | | | | | [address] | | | | | | [phone] | | | +--------+ + + + [...] different from the original. Progress Notes by Amnada Hutchinson RN at 03/31/131449 Author: Amanda Hutchinson RN Service: (none) Author Type: Registered Nurse Filed: 03/31/131451 Date of Service: 03/31/131449 Status: Signed Wheel And Caster Repairer: Amanda Hutchinson RN (Registered Nurse) Patient tolerated clear liquid tray. No nausea/vomitting. Pain under control. Prescripti ons given by [facility] bedside service. Instructions given, patient stated understanding. Patient discharged home with dressing supplies. liver campos, Holly Henderson [facility] - 03/31/2013 2:12 PM PDTFormatting of this note might be different from t he original. Progress Notes by Holly Javed RPH at 03/31/131411 Author: Holly Javed RPH Service: (none) Author Type: Pharmacist Filed: 03/31/131411 Date of Service: 03/31/131411 Status: Signed Wheel And Caster Repairer: Holly Javed RPH (Pharmacist) Clinical Pharmacy Note - Renal Dose Adjustment [address] 62 y.o. female Ht Readings from Last 1 Encounters: 03/31/13 1.753 m (5' 9") Wt Readings from Last 1 Encounters: 03/31/13 99.4 kg (219 lb 2.2 oz) CREATININE Date Value Range Status 03/25/2013 0.85 0.50 - 1.00 mg/dL Final Testing performed at [facility];[address] [place] [address];[place] [address] Creatinine clearance cannot be calculated - Pharmacy [...] 03/31/131333 Date of Service: 03/31/131333 Status: Signed Wheel And Caster Repairer: Amanda Hutchinson RN (Registered Nurse) Patient dressing [...] At | + + + | CASE: [id number] PATIENT: [address] Surgical Pathology | EXTERNAL [...] | | | Skin/Nipple: Not applicable. - ER/AL/Her-2/tavon/Ki-67: B1 block | | | submitted. - Tumor site (quadrant/clock position): Not specified. - | | | Tumor focality: Unifocal. - 7th Ed AJCC Stage - at least Stage IA - | | | pT1c, pNx, G3. Comment: Results of ER, AL, HER-2/tavon and Ki-67 | | | will follow in an addendum report. As part of the Quality | | | Assurance Program, this case was reviewed by another member of [facility] | | | Pathology (BES). INTRAOPERATIVE CONSULTATION: [...] | discrete mass lesions are grossly identified. Monomer Purification Operator sections | | | are submitted in [...] white-johnson delicate | | | fibrous tissue. Monomer Purification Operator sections are submitted in nine | | [...] performance | | | characteristics determined by [facility] Pathology and/or [facility] | | | Pathology. These tests may [...] | | | investigational or for research. [facility]ology and [facility] are | | | certified under the [...] + + | Performing | Address | City/State/[facility] | Phone Number | | Organization | | | | + +---------+ + + | EXTERNAL LAB | | | | + +---------+ + + documented in this encounter Visit Diagnoses Not on filedocumented in this encounter
--- OUTSIDE RECORDS SUMMARY | ~2019-11-11 | XMS | Encounter Summary ---
Demographics + + + | Address | [address] | | | [place] [address] | + + + | Home Phone | | + + + | Preferred Language | Unknown | + + + | Marital Status | | + + + | Taoism Affiliation | 1025 | + + + | Race | Unknown | + + + | Ethnic Group | Unknown | + + + Author + + + | Author | [facility] | | | and [place] | + + + | Organization | [facility] | | | and [...] Team Providers + +------+ + | Care Knit Goods Mender Name | Role | Phone | + +------+ + PCP | Unavailable | + +------+ + Encounter Details +--------+ + + + + | Date | Type | Department | Care Team | Description | +--------+ + + + + | 04/14/ | [facility] | [facility] | Travon Cordero | Breast cancer, right | | 2012 | Encounter | [facility] | MD Eliane [address] | breast (HCC) | | | | CLINICAL DECISION | [address] | | | | | [address] | [place] [address] | | | | | [place], [place] | [phone] | | | | | [address] | | | | | | [phone] | | | +--------+ + + + [...] documented as of this encounter Progress Notes Michael Degroot, Provider Unknown - 04/14/2013 1:57 PM PDTFormatting of this note m ight be different from the original. Progress Notes by Ashley Simmons RN at 04/14/131356 Author: Ashley Simmons RN Service: (none) Author Type: Registered Nurse Filed: 04/14/13 5271 Date of Service: 04/14/131356 Status: Signed Instrument Repair Specialist: Ashley Simmons RN (Registered Nurse) Patient discharged home via private vehicle with daughter. Signed and voiced understanding of discharge instructions and medications. Valuables and possessions with patient at [facility]. docume nted in this encounter Plan of Treatment Not on filedocumented as of this encounter Procedures + +--------+ + + + | Procedure Name | Priori | Date/Time | Associated Diagnosis | Comments | | | ty | | | | + +--------+ + + + | NM SENTINEL NODE | Routin | 04/14/2013 | | Results for this | | INJECTION WO IMAGES | e | 1:10 PM | | procedure are in the | | | | PDT | | results section. | + +--------+ + + + | TISSUE REQUEST FOR | Routin | 04/14/2013 | | Results for this | | PATHOLOGY (NON-ORD) | e | 12:00 AM | | procedure are in the | | | | PDT | | results section. | + +--------+ + + + documented in this encounter Results NM [place] Node Injection wo Images (04/14/2013 1:10 PM PDT) + + | Specimen | + + | | + + + + + | Narrative | Performed At | + + + | NUCLEAR MEDICINE RIGHT BREAST LYMPHOSCINTOGRAPHY 04/14/2013 | | | HISTORY Breast cancer. Lymph node mapping requested. DESCRIPTION | | | OF PROCEDURE After proper time out procedure was performed, 1.07 mCi | | | of filtered Technetium sulfur colloid was injected intradermally in | | | four aliquots around the right periareolar region. No imaging was | | | obtained per physician request. CONCLUSION Status post right | | | breast lymphoscintogram. Read by Wander Gonsalves MD on | | | 04/15/2013 8:38 AM | | + + + + + | Procedure Note | + + | Judd, Rad Conversion - 07/18/2019 6:06 PM PDT NUCLEAR MEDICINE RIGHT BREAST | | LYMPHOSCINTOGRAPHY 04/14/2013 HISTORYBreast cancer. Lymph node mapping requested. | | DESCRIPTION OF PROCEDUREAfter proper time out procedure was performed, 1.07 mCi of | | filtered Technetium sulfur colloid was injected intradermally in four aliquots around | | the right periareolar region. No imaging was obtained per physician request. | | CONCLUSIONStatus post right breast lymphoscintogram. Read by Wander Gonsalves MD on | | 04/15/2013 8:38 AM | | | |CONCLUSION | |Status post right breast lymphoscintogram. | | | |Read by Wander Gonsalves MD on 04/15/2013 8:38 AM | | | | | + + Tissue Request For Pathology (04/14/2013 12:00 AM PDT) + + | Specimen | + + | | + + + + + | Narrative | Performed At | + + + | CASE: [id number] PATIENT: [address] Surgical Pathology | EXTERNAL LAB | | Report PATHOLOGIC DIAGNOSIS: SENTINEL LYMPH NODES, RIGHT | | | AXILLA, EXCISION: - THREE LYMPH NODES WITH NO TUMOR IDENTIFIED | | | ON FROZEN SECTION, ON ROUTINE HE LEVELS, OR BY IMMUNOHISTOCHEMISTRY | | | FOR CYTOKERAIN (0/3). - PATHOLOGIC STAGE: pN0 (sn) | | | CJM:kmk:C2NR INTRAOPERATIVE CONSULTATION: FROZEN | | | SECTION: DATE AND TIME: 04/14/2013 AT 11:20 H | | | REPORTED TO: DR. CORDERO REPORTED BY: | | | DR. CANCINO FROZEN DIAG: (FSA1) | | | THREE NODES NEGATIVE FOR METASTATIC DISEASE. (BES) CLINICAL | | | HISTORY: 04/14/2013 at 11:00 H. No clinical history given. GROSS | | | DESCRIPTION: One specimen is received in one container, labeled | | | with the patient's name: A. Received fresh for frozen section | | | diagnosis designated "right axillary sentinel node number one", | | | consists of a 2.5 x 2.0 x 0.6 cm aggregate of yellow-johnson adipose | | | tissue that upon dissection reveals three yellow johnson possible lymph | | | nodes that range in size from 0.8 cm up to 1.2 cm in greatest | | | dimension. The specimen is submitted for frozen section resubmitted | | | as received in cassette FSA1. FM MICROSCOPIC EXAMINATION: | | | Histologic sections of all submitted blocks are examined by light | | | microscopy. These findings, together with the gross examination, | | | support the pathologic diagnosis. This report has been prepared | | | using a voice recognition system. The report was reviewed for | | | accuracy, however, sound-alike word errors, addition and/or deletions | | | may occur. If there is any question about this report please contact | | | the originating pathologist. Ulisses Harding MD | | | Electronically signed April 15, 2013 1:07:29PM | | + + + + +---------+ + + | Performing | Address | City/State[facility] | Phone Number | | Organization | | | | + +---------+ + + | EXTERNAL LAB | | | | + +---------+ + + documented in this encounter Visit Diagnoses + + | Diagnosis | + + | Breast cancer, right breast (HCC) Malignant neoplasm of breast (female), unspecified | | site | + + documented in this encounter
--- OUTSIDE RECORDS SUMMARY | ~2019-11-11 | XMS | Clinical Summary ---
Demographics + + + | Address | [address] | | | [place] [address] | + + + | Home Phone | | + + + | Preferred Language | Unknown | + + + | Marital Status | | + + + | Shinto Affiliation | 1025 | + + + | Race | Unknown | + + + | Ethnic Group | Unknown | + + + Author + + + | Author | [facility] | | | and [place] | + + + | Organization | [facility] | | | [...] Team Providers + +------+ + | Care Mft Name | Role | Phone | + [...] | | 2018 | | | CC CLEAN ROOM TECHNICIAN | | +--------+ + + + [...] +--------+ +---------+--------+ | MEDICARE | MEDICA | [id number] | 03/26/20 | [phone] | | Medica | | | RE | | 15-Pre | 5 | | re | | | PART A | | sent | | | | | | AND B | | | | | | + +--------+ +--------+ +---------+--------+ | MEDICAID [place] | MEDICA | [id number] | 10/07/ | [phone] | | Medica [...] manuel | | | 2 (Home) | [address] | + +--------+ +--------+ + + Advance Directives + + + + + | Type | Date Recorded | Patient | Explanation | | | | Wastewater Process Engineer | | + + + + + | Power of | | | | | Snack Bar Cashier | | | | + + + + + | Advance | 10/07/2019 | | | | Directive | 8:21 AM | | | + + + + +
--- OUTSIDE RECORDS SUMMARY | ~2019-11-11 | XMS | Encounter Summary ---
Demographics + + + | Address | [address] | | | [place] [address] | + + + | Home Phone | | + + + | Preferred Language | Unknown | + + + | Marital Status | | + + + | Synagogue Affiliation | 1025 | + + + | Race | Unknown | + + + | Ethnic Group | Unknown | + + + Author + + + | Author | [facility] | | | and [place] | + + + | Organization | [facility] | | | and [...] Team Providers + +------+ + | Care Metal Furniture Glazier Name | Role | Phone | + +------+ + | Lucius Ramírez DO | PCP | | + +------+ + Encounter Details +--------+ + + + + | Date | Type | Department | Care Team | Description | +--------+ + + + + | 12/04/ | Orders Only | [facility] | Sukhdeep Mayen | | | 2017 | | CARDIOLOGY VANCE Parker MD [address] | | | | | [address] | [address] | | | | | [address] | [place] [address] | | | | | [place], [place] | [phone] | | | | | [address] | | | | | | [phone] | | | +--------+ + + + [...] Performed At | + + + | [facility] CARDI[facility] [address], [place], [place] | | | [phone] NUCLEAR TREADMILL STRESS TEST TEST DATE: | [...] | | bpm, Max BP 171/110. RPP: 45286. METS: 4.60.Symptoms none. The test | | [...] Judd, Rad Conversion - 07/17/2019 6:50 PM [facility] [id number] [facility] | | Dr [place], [phone] NUCLEAR TREADMILL STRESS TESTTEST DATE: | | 12/04/2016NAME: Ruth Jaffe: 1950MRN: [id number] MD: Sukhdeep | | MD Faheem INDICATION [...] achieved: 137 bpm, Max BP 171/110. RPP: 22442. METS: 4.60.Symptoms | | none. The test [...]
--- OUTSIDE RECORDS SUMMARY | ~2019-11-11 | XMS | Clinical Summary ---
Demographics + + + | Address | [address] | | | [place] [address] | + + + | Home Phone | | + + + | Preferred Language | Unknown | + + + | Marital Status | | + + + | Gnosticist Affiliation | 1025 | + + + | Race | Unknown | + + + | Ethnic Group | Unknown | + + + Author + + + | Author | [facility] (Historical as of | | | 07-12-19) | + + + | Organization | [facility] (Historical as of | | | 07-12-19) [...] Team Providers + +------+ + | Care Certified Respiratory Therapist Name | Role | Phone | + [...] +------+-------+ + | MEDICARE | MEDICA | [id number] | | | [address] | | | RE | | | | [place] [address] | | | IP-OP | | | | | + +--------+ +------+-------+ + | MEDICAID | MEDICA | [id number] | | | [address] | | | [place] | | | | [place], [place] | | | [place] | | | | [address] | + +--------+ +------+-------+ + + +--------+ [...] | manuel | | | [address] | [address] | + +--------+ +--------+ + +
--- OUTSIDE RECORDS SUMMARY | ~2019-11-11 | XMS | Encounter Summary ---
Demographics + + + | Address | [address] | | | [place] [address] | + + + | Home Phone | | + + + | Preferred Language | Unknown | + + + | Marital Status | | + + + | Orthodox Affiliation | 1025 | + + + | Race | Unknown | + + + | Ethnic Group | Unknown | + + + Author + + + | Author | [facility] | | | and [place] | + + + | Organization | [facility] | | | [...] Team Providers + +------+ + | Care Felt Hat Flanging Operator Name | Role | Phone | [...] Medication Refill | | 2018 | | [facility] | E, DO [address] | | | | | MEDICAL CLINIC [address] | [place], [place] | | | | | [address] [place], | [address] | | | | | [place] [address] | [phone] | | | | | [phone] | | | +--------+--------+ + + + [...]
--- OUTSIDE RECORDS SUMMARY | ~2019-11-11 | XMS | Encounter Summary ---
Demographics + + + | Address | [address] | | | [place] [address] | + + + | Home Phone | | + + + | Preferred Language | Unknown | + + + | Marital Status | | + + + | Scientologist Affiliation | 1025 | + + + | Race | Unknown | + + + | Ethnic Group | Unknown | + + + Author + + + | Author | [facility] | | | and [place] | + + + | Organization | [facility] | | | and [...] Team Providers + +------+ + | Care Gift Officer Name | Role | Phone | + +------+ + PCP | Unavailable | + +------+ + Encounter Details +--------+ + + + + | Date | Type | Department | Care Team | Description | +--------+ + + + + | 04/14/ | [facility] | [facility] | Travon Cordero | Breast cancer, right | | 2012 | Encounter | [facility] | MD Eliane [address] | breast (HCC) | | | | CLINICAL DECISION | [address] | | | | | [address] | [place] [address] | | | | | [place], [place] | [phone] | | | | | [address] | | | | | | [phone] | | | +--------+ + + + [...] (none) Author Type: Registered Nurse Filed: 04/14/13 8048 Date of Service: 04/14/131356 Status: Signed Circular Head Saw Operator: Ashley Simmons RN (Registered Nurse) Patient discharged home via private vehicle with daughter. Signed and voiced understanding of discharge instructions and medications. Valuables and possessions with patient at [facility]. docume nted in this encounter Plan of [...] + documented in this encounter Results NM [place] Node Injection wo Images (04/14/2013 1:10 PM [...] At | + + + | CASE: [id number] PATIENT: [address] Surgical Pathology | EXTERNAL [...] + + | Performing | Address | City/State/[facility] Cent[facility]ode | Phone Number | | Organization [...]
--- OUTSIDE RECORDS SUMMARY | ~2019-11-11 | XMS | Encounter Summary ---
Demographics + + + | Address | [address] | | | [place] [address] | + + + | Home Phone | | + + + | Preferred Language | Unknown | + + + | Marital Status | | + + + | Nondenominational Affiliation | 1025 | + + + | Race | Unknown | + + + | Ethnic Group | Unknown | + + + Author + + + | Author | [facility] | | | and [place] | + + + | Organization | [facility] | | | and [...] Team Providers + +------+ + | Care Consulting Technical Manager Name | Role | Phone | [...] | | | | [place] | [address] | | | | | [address] | [phone] | | | | | [phone] | | | +--------+ + + + [...] arch are normal. MEASUREMENTS | | | Hurl Shaker: NELY Authenticated by: MARISOL PEPPER MD Report [...] aortic | | arch are normal. MEASUREMENTS Hurl Shaker: JOELLENuthenticated by: MARISOL | | SHANTELLE Donaldson [...] | |MEASUREMENTS | | | | | |Hurl Shaker: | |Authenticated by: MARISOL PEPPER MD | |Report Date/Time: 03-22-2016 13:24:24 | | | |IMPRESSION: | |1. Overall left ventricular systolic function is normal with, an EF between 65 - 70 %. | + + documented in this encounter Visit Diagnoses Not on filedocumented in this encounter"
--- OUTSIDE RECORDS SUMMARY | ~2019-11-11 | XMS | Encounter Summary ---
Demographics + + + | Address | [address] | | | [place] [address] | + + + | Home Phone | | + + + | Preferred Language | Unknown | + + + | Marital Status | | + + + | Christian Affiliation | 1025 | + + + [...] Team Providers + +------+ + | Care Production Hand Name | Role | Phone | + [...] [place] | | | | | | [address] | [address] | | | | | | Phone: | Phone: | | | | | | [phone] | [phone] | | | | | | Fax: | Fax: | | | | | | [phone] | [phone] | + + + + + + [...] pain | | 2019 | Visit | [facility] | E, DO [address] | (Primary Dx); | | | | MEDICAL CLINIC [address] | [place] | Essential | | | | [address] [place], | [address] | hypertension; Arm | | | | [place] [address] | [phone] | mass, left; Urge | | | | [phone] | | incontinence of | | | [...] yrs or >, Trivalent HIGH-DOSE PFSK (Fluzone) [[id number]] Plan: -Ordered a 12 lead ECG. Results [...] -Advised patient to speak with her trusted staff certified nurse midwife or counselor to relieve some of the [...] care. She is a former patient of [facility] in [facility]. The patient reports pain in her chest [...] - BIOPSY; Surgeon: Travon Ramirez MD; Location: [facility] MAIN OR; Ser vice: General; Laterality: Right; intraoperative frozen section BREAST LUMPECTOMY Right 03/31/2013 Procedure: BREAST - LUMPECTOMY; Surgeon: Travon Ramirez MD; Location: [facility] MAIN OR; Service: General; Laterality: Right; SECTION [...] file Gets together: Not on file Attends anabaptist service: Not on file Active member of [...] This documentation prepared by Yesenia Gunn, medical educator. All aspects of this chart review ed [...]
[~2019-11-11 15:06] MED LIST changes: +ALEVE220 M1 PO; +MAPAP500 M1 PO; +NEURONTIN300 MG PO
== END 2019-11-11 16:00 | disposition home or self-care (01) ==
LOC: ED 15:06
DX: S61.451A Open bite of right hand, initial encounter (principal); W54.0XXA Bitten by dog, initial encounter; Z79.899 Other long term (current) drug therapy
CPT/HCPCS: 99283

== ENCOUNTER 2021-04-12 07:17 | Day surgery (SDC) | payer MEDICARE, OTHER ==
[~2021-04-12] VITALS: Ht 177.8 cm; Wt 92.3 kg
[~2021-04-12 07:17] MED LIST changes: +LIPITOR20 MG; +NORVASC5 MG PO
[2021-04-12] MEDS ORDERED: FISH OIL 1,0001 EAC2 NG (07:38)
[2021-04-12] MEDS ORDERED: ADULT LOW DOSE81 MG PO (07:39)
--- NOTE | 2021-04-12 09:06 | NUR ---
04/12/21 0906 Sheets,Yessica 0901 PT ARRIVED TO PACU ON 6L VIA MASK, ORAL AIRWAY IN PLACE AND SMALL JAW TRUST NEEDED TO MAINTAIN AIRWAY. VSS.
--- NOTE | 2021-04-12 09:59 | NUR ---
0935: PT ARRIVES BACK TO DS RM 4 AWAKE AND ALERT. PT CLARY PAIN IN SURGICAL SITE BUT STATES CHRONIC PAIN IN RIGHT SHOULDER 05/05. PT PROVIDED ICED WATER AND JELLO. DAUGHTER AT BEDSIDE, CALL LIGHT WITHIN REACH.
[2021-04-12] MEDS ORDERED: HYDROCODON-ACE1 EA10 PO (10:17)
--- NOTE | 2021-04-12 10:46 | NUR ---
PT RESTING IN BED AWAKE CONVERSING WITH DAUGHTER. PT TOLERATES PO, DENIES NAUSEA OR SURGICAL PAIN. DC CRITERIA MET, PT UP TO GET DRESSED WITH DAUGHTER AT BEDSIDE. ENC TO OPEN CURTAIN WHEN DRESSED.
--- NOTE | 2021-04-12 11:16 | OR ---
[facility] [address] [place], [place] [address] Signed DATE OF OPERATION: 04/12/2021 SURGEON: Harjit Toribio MD PREOPERATIVE DIAGNOSIS: Left parotid mass. POSTOPERATIVE DIAGNOSIS: Left parotid mass. PROCEDURE: Left superficial parotidectomy. ANESTHESIA: General LMA. DIAMOND DRILLER: Greg. PREOPERATIVE HISTORY: Letitia is a 70-year-old lady with left neck mass for several months, this appears to be in the tail of the parotid by exam and ultrasound. She is taken to the operating room for the above-mentioned procedures. OPERATIVE PROCEDURE AND FINDINGS: After informed consent, the patient was taken to the operating room, placed in supine position where general LMA anesthesia was induced. The patient and procedure were verified. The patient received preop intravenous Ancef. The head and neck were turned to the right. The lesion in the neck was marked with a marking pencil. Left neck was sterilely prepped and draped. The mass in question was just in the inferior portion of the parotid in the tail about 2 cm firm. After sterile prep and drape, an incision was marked two fingerbreadths inferior to the mandible overlying the mass in transverse direction, 1% lidocaine with epi was injected. Incision was made through skin and subcutaneous tissue. The greater auricular nerve was identified running right over the mass, this was preserved. Dissection carried down around the mass, which was purplish in color, cystic, milky fluid came out when it was ruptured. The mass was removed with sharp and blunt dissection with completely excised, sent to pathology. Bleeding was controlled with needle point cautery. There was a large vein adherent to the mass in the posterior aspect and this was clamped, divided and tied with 4-0 silk. Hemostasis was verified. The wound was copiously lavaged with saline. The wound was then closed Electronically Signed By: HARJIT TORIBIO MD 04/12/21 1116 PATIENT NAME: LETITIA STREET OPERATIVE REPORT DATE OF : 50 REPORT #: [id number] PHYSICIAN: HARJIT TORIBIO MD PCP: EDWARD VITAL MD REPORT IS CONFIDENTIAL AND NOT TO BE RELEASED WITHOUT AUTHORIZATION [facility] [address] [place] [id number] Signed with 4-0 interrupted Vicryl in the deep layer, subcutaneous layer and maciej in the skin. The skin was cleansed, Neosporin was applied. The patient was then awakened, extubated, transported to the recovery room in good condition. There were no complications. BLOOD LOSS: Minimal. SPECIMEN: To pathology. DRAINS: No drains. Harjit Toribio MD GC/MODL /[id number] Copies: ~ Electronically Signed By: HARJIT TORIBIO MD 04/12/21 1116 PATIENT NAME: LETITIA STREET OPERATIVE REPORT DATE OF : 50 REPORT #: [id number] PHYSICIAN: HARJIT TORIBIO MD PCP: EDWARD VITAL MD REPORT IS CONFIDENTIAL AND NOT TO BE RELEASED WITHOUT AUTHORIZATION
--- NOTE | 2021-04-12 11:19 | NUR ---
1050: INCISION COVERED WITH 2X2 GAUZE AND PAPER TAPE. DC INSTRUCTIONS PRESENTED TO PT AND DAUGHTER, ALL QUESIONS ADDRESSED. PT AWARE OF PAIN PRESCRIPTION IN DC FOLDER. PT DC VIA WC TO DAUGHTER'S CAR AT HOSPITAL ENTRANCE TO HOME.
--- NOTE | 2021-04-18 16:55 | PATH ---
[facility] [address] [place], [place] [address] Signed SPECIMEN(S): A LEFT NECK MASS SPECIMEN SOURCE: A. LEFT NECK MASS CLINICAL HISTORY: No pre-op or clinical information is given on requisition. FINAL PATHOLOGIC DIAGNOSIS: Left neck mass, excision: - Squamous-lined cystic structure with extensive acute and chronic inflammation, areas of necrosis and surrounding lymphoid tissue. - Negative for dysplasia or malignancy. COMMENT: The findings may represent a lymphoepithelial cyst or branchial cleft cyst. There is no evidence of dysplasia or malignancy in sections examined. The observations and diagnosis are those of Dr. Silvetsre Borja, hematopathologist. REGULO:C2NR MICROSCOPIC EXAMINATION: Histologic sections of all submitted blocks are examined by light microscopy. These findings, together with the gross examination, support the pathologic diagnosis. A cyst variably lined by columnar and squamous mucosa is noted. There is associated fibrosis, fat necrosis, and lymphoid tissue. Minor salivary gland like tissue is focally identified. A panel of stains are examined (block A1) [facility] and p63: Positive in epithelial cells with a normal marking pattern. TTF-1 and PAX 8 (thyroid markers for thryroglossal duct cyst): Unremarkable to negative. CK 5/6: Positive in epithelial cells with no aberrant architecture. PAX5 (B-cells): Focal aggregates in germinal centers with no atypical architecture. CD3 (T-cells): 80% positive in lymphoid areas with no atypical architecture BCL2: Positive in mantle zone and T-cell areas. Negative in germinal centers. REGULO GROSS DESCRIPTION: The specimen, labeled "JS, left neck mass," is received in formalin and consists of three pink-johnson, fibromembranous, cystic-like tissue fragments that PATIENT NAME: MARIVEL STREET PATHOLOGY DATE OF : 50 REPORT #: [id number] PHYSICIAN: RADHA PATHOLOGY PCP: EDWARD VITAL MD REPORT IS CONFIDENTIAL AND NOT TO BE RELEASED WITHOUT AUTHORIZATION [facility] [address] [place], [place] [address] Signed in aggregate measure 1.4 x 1.3 x 1.3 cm. Sectioning through the specimen reveals the previously opened cyst that measures 0.8 cm in diameter. The cyst is empty. Specimen is entirely submitted in cassette (A1). JS (under the direct supervision of a pathologist) The Gross Description was prepared using a voice recognition system. The report was reviewed for accuracy; however, sound-alike word errors, addition and/or deletions may occur. If there is any question about this report, please contact Client Services. ADDITIONAL NOTES: Immunohistochemical and/or in situ hybridization studies were performed on this case with the appropriate positive controls that react as expected. This test was developed and its performance characteristics determined by [facility]. It has not been cleared or approved by the U.S. Food and Drug Administration. The FDA has determined that such clearance or approval is not necessary. This test is used for clinical purposes. It should not be regarded as investigational or for research. [facility] is certified under the Clinical Laboratory Improvement Amendments of 1988 (CLIA) as qualified to perform high complexity clinical laboratory testing. This assay has not been validated for specimens that have been decalcified. PERFORMING LABORATORY: The technical component was performed by [facility], [address] [place] [id number] (Game Trapper: Vida Brown MD; CLIA# [id number]). Professional interpretation was performed by [facility], [facility], [address] [place] [id number] (CLIA#: [id number]). Diagnostician: Silvestre Borja MD Pathologist Diagnostician: Papa Little MD Pathologist Electronically Signed 04/18/2021 Copies: ~ PATIENT NAME: MARIVEL STREET PATHOLOGY DATE OF : 50 REPORT #: [id number] PHYSICIAN: RADHA PATHOLOGY PCP: EDWARD VITAL MD REPORT IS CONFIDENTIAL AND NOT TO BE RELEASED WITHOUT AUTHORIZATION
== END 2021-04-12 11:00 | disposition home or self-care (01) ==
LOC: DS 07:17 → OPS 07:17 → DS 08:00 → OPS 11:00
PROVIDERS: ATTEND Otolaryngology
PROC: 0CB90ZZ Excision of Left Parotid Gland, Open Approach (ICD-10-PCS; principal; 2021-04-12 08:00)
DX: K11.21 Acute sialoadenitis (principal); K11.23 Chronic sialoadenitis; I10 Essential (primary) hypertension
CPT/HCPCS: 00300; 88305; 88341; 88342; J0690; J1100; J1885; J2001; J2250; J2405; J2704; J3010; J7121

== ENCOUNTER 2023-09-19 08:41 | Emergency (ER) | payer MEDICARE, OTHER ==
[~2023-09-19] VITALS: Ht 172.7 cm; Wt 90.3 kg
[~2023-09-19 08:41] MED LIST changes: +ADULT LOW DOSE81 MG PO; +ALEVE220 MG PO; +CALCIUM-MAGNES1 EAC4 PO; +CEFUROXIME250 MG PO; +DOCUSATE SODIU PO; +FISH OIL 1,0001 EAC2 NG; +GABAPENTIN300 MG PO; +HYDROCODON-ACE1 EA10 PO; +PAIN RELIEF500 M1 PO; +SENNA LAX8.6 MG PO; +SENNA8.6 MG PO; +VITAMIN B COMP1 EACH PO; +VITAMIN B-1250 MG PO; +VITAMIN D325 MC2 PO; +ZOLOFT50 MG PO
--- OUTSIDE RECORDS SUMMARY | 2023-09-19 08:44 | XMS ---
PreManage Notification: [address] Security Custom Shoemaker Events No recent Security Events currently on file CRITERIA MET - [facility] -, Crispin- Dentist: Cafeteria Cashier [facility] PHONE: [phone] JAMIL CALVIN Physician Investment Officer Current PHONE: [phone] Cyrus has no Care Guidelines for this patient. Gayla VISIT COUNT (12 MO.) 2 PIYUSH [place]) TOTAL 3 NOTE: Visits indicate total known visits. ED/UCC VISIT TRACKING (12 MO.) 09/19/2023 08:[address] [facility] [place] TYPE: Emergency COMPLAINT: - L FLANK PAIN 07/11/2023 09:[address] [facility] [place] TYPE: Emergency COMPLAINT: - CONSTIPATION DIAGNOSES: - Constipation, unspecified - Essential (primary) hypertension - Other [facility] (current) drug therapy 07/09/2023 17:20 [facility] ([facility]) TYPE: Emergency DIAGNOSES: - Sacrococcygeal disorders, not elsewhere classified - back pain INPATIENT VISIT TRACKING (12 MO.) No inpatient visits to display in this time frame [email or web address]
[2023-09-19 09:18] LABS: BASOPHILS 0.7 % (0-2); EOSINOPHILS 3.2 % (0-6); HEMATOCRIT 42.2 % (35.0-50.0); HEMOGLOBIN 14.5 g/dL (12.0-18.0); LYMPHOCYTES 12.7 % (24-44); MCH 30.3 (27-36); MCHC 34.3 g/dl (30-36); MCV 88.4 fl (81-99); MONOCYTES 7.4 % (0-12); PLATELET COUNT 359 K/uL (140-440); RBC 4.78 M/ul (4.3-5.7); RDW 13.6 (10.5-15.0)
[2023-09-19 09:26] LABS: BILIRUBIN, URINE NEGATIVE (negative); BLOOD/HGB, URINE LARGE (Negative); KETONE, URINE TRACE (Negative); LEUK ESTERASE, URINE NEGATIVE (negative); NITRITE, URINE NEGATIVE (negative); PH, URINE 7.5 (5-7)
[2023-09-19 09:31] LABS: RED BLOOD CELLS, URINE >50 /hpf (0-5)
[2023-09-19 09:32] LABS: REFLEX CULTURE, URINE No (No)
[2023-09-19 09:45] LABS: ALBUMIN 3.8 g/dL (3.4-5.0); ALBUMIN/GLOBULIN RATIO 0.93 (1.1-2.4); ANION GAP 11.7 (7-21); BILIRUBIN, TOTAL 0.7 ng/dL (0.2-1.0); BUN/CREATININE RATIO 15.94 (6.0-28.6); CREATININE, SERUM 0.69 mg/dL (0.55-1.02); POTASSIUM 3.7 mmol/L (3.5-5.1); PROTEIN, TOTAL 7.9 g/dL (6.4-8.2)
[2023-09-19] MEDS ORDERED: PYRIDIUM200 MG PO (11:31)
[2023-09-19] MEDS ORDERED: MACROBID 100 M100 MG PO (11:31)
[2023-09-19 11:51] VITALS: BP 163/89
== END 2023-09-19 11:51 | disposition home or self-care (01) ==
LOC: ED 08:41
PROVIDERS: Emergency Medicine
DX: N30.01 Acute cystitis with hematuria (principal); I10 Essential (primary) hypertension; Z79.82 Long term (current) use of aspirin; Z96.652 Presence of left artificial knee joint; Z79.899 Other long term (current) drug therapy
CPT/HCPCS: 36415; 74177; 80053; 81001; 85025; 96375; 99284-25; J1170; J1885; J2405; Q9967